=== PATIENT | female | born 1930 | race Hispanic/Latino ===

== ENCOUNTER 2018-05-30 09:25 | Emergency (ER) | payer MEDICARE ==
[~2018-05-30] VITALS: Ht 149.9 cm; Wt 73.9 kg
[~2018-05-30 09:25] MED LIST: CLINDAMYCIN HC150 MG PO; FUROSEMIDE40 MG PO; GLIPIZIDE5 MG PO; LOSARTAN POTAS100 MG PO; OMEPRAZOLE40 MG; TYLENOL WITH C1 EACH PO; VITAMIN D400 UNI1
[2018-05-30] MEDS ORDERED: ASPIRIN 81 MG CHEW TAB PO ONE (10:00)
[2018-05-30 10:19] LABS: BASOPHILS % 0.4 % (0.0-1.0); EOSINOPHILS # (AUTO) 0.1 (0.0-0.4); HEMATOCRIT 31.3 % (34.2-44.1); LYMPHOCYTES # (AUTO) 1.4 (1.0-3.2); LYMPHOCYTES % 19.2 % (18.0-39.1); MEAN CORPUSCULAR HEMOGLOBIN 23.4 pg (28-32); MEAN CORPUSCULAR HGB CONC 31.6 g/dL (31-35); MONOCYTES # (AUTO) 0.8 (0.2-0.8); MONOCYTES % 11.5 % (4.4-11.3); NEUTROPHILS # (AUTO) 4.7 (2.1-6.9); NEUTROPHILS % 66.2 % (38.7-80.0); PLATELET COUNT 230 x10e3/uL (140-360); RED BLOOD COUNT 4.23 x10e6/uL (3.6-5.1); RED CELL DISTRIBUTION WIDTH 16.8 % (11.7-14.4)
[2018-05-30 10:21] LABS: HEMOGLOBIN 9.9 g/dL (12.0-16.0)
[2018-05-30] MEDS ORDERED: HYDROCODONE/APAP 5MG-325MG TAB PO ONE (10:30)
[2018-05-30 10:35] LABS: ALANINE AMINOTRANSFERASE 7 IU/L (0-55); ALBUMIN 2.9 g/dL (3.5-5.0); ALBUMIN/GLOBULIN RATIO 0.8 (0.8-2.0); ALKALINE PHOSPHATASE 119 IU/L (40-150); ANION GAP 14.1 mmol/L (8-16); BLOOD UREA NITROGEN 20 mg/dL (7-26); BUN/CREATININE RATIO 29 (6-25); CALCIUM 8.9 mg/dL (8.4-10.2); CARBON DIOXIDE 26 mmol/L (22-29); CHLORIDE 99 mmol/L (98-107); CREATINE KINASE 26 IU/L (29-168); CREATININE, SERUM 0.68 mg/dL (0.57-1.11); EST GLOMERULAR FILTRATION RATE > 60 ML/MIN (60-); GLUCOSE 175 mg/dL (74-118); POTASSIUM 4.1 mmol/L (3.5-5.1); SODIUM 135 mmol/L (136-145)
[2018-05-30] MEDS ORDERED: IRBESARTAN150 MG PO (10:47)
--- NOTE | 2018-05-30 10:48 | Diagnostic Imaging Report ---
Exam: Left shoulder 2 views History: Pain x1 week Comparison: None. Findings: No acute, displaced fracture or dislocation. Humeral head projects appropriately adjacent to the glenoid. Moderate glenohumeral and acromioclavicular joint space narrowing with marginal osteophytosis. Irregularity of the greater humeral tuberosity likely reflects rotator cuff tendinosis. Left subclavian approach implantable cardiac device partially visualized. Left upper lung is grossly clear. Soft tissues unremarkable. Impression: No acute osseous abnormalities. Moderate acromioclavicular and glenohumeral degenerative joint disease. Signed by: Dr. Babar Oviedo M.D. on 05/30/2018 10:45 AM
[2018-05-30] MEDS ORDERED: LIDOCAINE 5% PATCH TP SCH (11:00)
[2018-05-30] MEDS ORDERED: LIDOPATCH1 EACH TOP (12:57)
--- NOTE | 2018-05-30 14:02 | Diagnostic Imaging Report ---
History: Left-sided shoulder pain Comparison studies: None Technique: Axial images were obtained through the cervical region. Coronal and sagittal images reconstructed from the axial data. Intravenous contrast: None Dose modulation, iterative reconstruction, and/or weight based adjustment of the mA/kV was utilized to reduce the radiation dose to as low as reasonably achievable. Findings: Atlantoaxial articulation: Degenerative changes without acute abnormality Alignment: Normal lordosis No scoliosis. Cervicomedullary junction: No abnormalities. Patent foramen magnum. Soft tissues: No gross abnormalities. Vertebrae: No fractures, neoplasm or infection. Degenerative changes: C2-C3: Patent spinal canal and foramina . C3-4: Disc degeneration with decreased intervertebral space. Asymmetric left disc osteophyte complex, bilateral uncinate process and facet hypertrophy results in no significant canal stenosis, mild right and moderate left foraminal narrowing . C4-5: Disc degeneration with decreased intervertebral space. Diffuse disc osteophyte complex, bilateral uncinate process hypertrophy results in mild canal stenosis, moderate right and mild left foraminal narrowing. C5-6: Disc degeneration with decreased intervertebral space and mild endplate sclerotic changes. Subcentimeter pneumatocyst C5 superior endplate. Diffuse disc osteophyte complex, Bilateral uncinate processes and facet hypertrophy results in mild canal stenosis and moderate bilateral foraminal narrowing . C6-7: Patent spinal canal and foramina . C7-T1: Patent spinal canal and foramina . IMPRESSION: 1. No acute cervical abnormality. 2. Moderate multilevel degenerative foraminal narrowing at C3-4 on the left, C4-5 on the right and C5-6 bilaterally. Mild multilevel foraminal narrowing at the upper and mid cervical spine. 3. Mild degenerative canal stenosis at 4-5 and C5-6. Other degenerative changes as described above Signed by: DR Konrad Solis M.D. on 05/30/2018 1:59 PM
== END 2018-05-30 13:15 | disposition home or self-care (01) ==
LOC: ER 09:25
DX: M25.512 Pain in left shoulder (principal); M54.12 Radiculopathy, cervical region
CPT/HCPCS: 36415; 72125; 80053; 82550; 82553; 84484; 85025; 93005; 99284

== ENCOUNTER 2018-11-06 07:24 | Inpatient (IN) | payer MEDICARE ==
[~2018-11-06] VITALS: Ht 152.4 cm; Wt 70.3 kg
[~2018-11-06 07:24] MED LIST changes: +IRBESARTAN150 MG PO; +LIDOPATCH1 EACH TOP
--- OUTSIDE RECORDS SUMMARY | 2018-11-06 07:27 | XMS REPORT ---
Author Author [facility] Address Unknown Phone Unavailable Care Team Providers Care Behavioral Health Clinician Name Role Phone Mary ROACH Unavailable Unavailable Payers Payer Name Policy Type Policy Number Effective Date Expiration Date Problems This patient has no known problems. Allergies, Adverse Reactions, Alerts Allergy Name Allergy Type Status Severity Reaction(s) Onset Date Inactive Date Treating Clinician Comments mupirocin DA Active UT 2018-10-26 00:00:00 ciprofloxacin HCl DA Active U 2010-11-09 00:00:00 Sulfa (Sulfonamide Antibiotics) DA Active U 2010-11-09 00:00:00 lovastatin DA Active U 2010-11-09 00:00:00 prednisone DA Active U 2010-11-09 00:00:00 cephalexin DA Active U 2010-11-09 00:00:00 doxycycline DA Active U 2010-11-09 00:00:00 metoclopramide DA Active U 2010-11-09 00:00:00 vancomycin DA Active U 2010-11-09 00:00:00 levofloxacin DA Active U 2010-11-09 00:00:00 Medications This patient has no known medications. Results Test Description Test Time Test Comments Text Results Atomic Results Result Comments [facility] 2018-11-01 17:46:00 RUN DATE: 11/01/18 [facility] PAGE 1 RUN TIME: 1747 Specimen Inquiry RUN USER: INTERFACE PATIENT: EDMUND SINGH LOC: [place] U #: [id number] AGE/SX: 87/F ROOM: [facility] RE10/22/18REG DR: Boo Kelley MD : 32 BED: A DIS: 10/26/18 STATUS: DIS IN TLOC: SPEC #: [id number] RECD: 10/28/18 STATUS: BROOK[place]N MALDONADO #: [id number] MURPHY: 10/28/18- SUBM DR: Jennifer Cox MD ENTERED: 10/28/18 SP TYPE: STOMACH OTHR DR: Mariano Woodruff MD Chitra,Justin Mckenzie MDORDERED: GROSS COPIES TO: Mariano Woodruff MD [address] [place], [place] [id number] H aqJustin MD [address] [place] [address] Jennifer Cox MD [address] [place] [address] PROCEDURES: GROSS (11/01/18-1256) TISSUES: 1. DUODENUM, NOS - BX 2. ANTRAL BIOPSY - H-PYLORI 3. FUNDUS - POLYP CLINICAL HISTORY COLLECTION DATE: 10/25/18 ANEMIA, MELENA COMMENT An atypical lymphoid proliferation is present in the first specimen highly suspicious for lymphoma. For this reason, the tissue from this specimen was sent for consultation to Dr. Price. 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 FISH for BCL2, BCL6, and MYC for evaluation of double or triple hit lymphoma will follow. Case reviewed intradepartmentally by Dr. Magaly Cortés, who agrees with the above diagnosis and interpretation. 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 It consists of two dias biopsy fragments measuring 0.25 cm each, submitted as (1). The second specimen is received in formalin, labeled with the patient's name, identified as "antrum and body bx". It consists of dias biopsy material measuring 0.4 cm in aggregate, submitted as (2). An H E and a Giemsa stain will be prepared. The third specimen is received in formalin, labeled with the patient's name, identified as "fundic polyp", and consists of dias biopsy fragment measuring 0.3 cm, submitted as (3). GROSS PERFORMED AT [facility] [address] [place] [id number] (p)[phone] CONTINUED ON NEXT PAGE RUN DATE: 11/01/18 [facility] PAGE 3 RUN TIME: 1747 Specimen Inquiry RUN USER: INTERFACE SPEC #: [id number] PATIENT: EDMUND SINGH TACO #[id number] (Continued) MICROSCOPIC All of the stains, including any controls performed, stain appropriately. MICROSCOPIC PERFORMED AT [facility] [address] [facility] [place] [address] (p)[phone] PERFORMING SITE Diagnosis performed at: [facility] [address] [facility], [place] [address] Signed SIGNATURE ON FILE Yovanny Sánchez MD 11/01/18 1746 END OF REPORT TROPONIN-I 2018-11-01 10:42:00 TROPONIN-I (test code=TROPI) 0.08 ng/mL 0.00-0.056 Results called to [id number] by SANDY 11/01/18 1041Critical results verified and read back by Nurse? Tracy [id number] 09:48:00* Test Item Value Reference Range Comments GLUBED (test code=GLUBED) 158 mg/dL 74-106 Performed by certified pipe wrapping machine operator at [facility] [id number] 08:24:00* Test Item Value Reference Range Comments GLUBED (test code=GLUBED) 144 mg/dL 74-106 Performed by certified pipe wrapping machine operator at [facility] URINALYSIS [id number] 08:16:00* Test Item Value Reference Range Comments UA COLOR (test code=COLU) YELLOW YELLOW UA APPEARANCE (test code=APPU) SLIGHT CLOUDY CLEAR UA GLUCOSE DIPSTICK (test code=DGLUU) norm mg/dL NEGATIVE UA BILIRUBIN DIPSTICK (test code=BILU) 1 mg/dL NEGATIVE UA KETONE DIPSTICK (test code=KETU) neg mg/dL NEGATIVE UA SPECIFIC GRAVITY (test code=SGU) 1.015 1.001-1.035 UA BLOOD DIPSTICK (test code=JACKY) neg Jean Marie/uL NEGATIVE UA PH DIPSTICK (test code=SABRINA) 7.0 5.0-8.0 UA PROTEIN DIPSTICK (test code=PROU) 30 (1+) mg/dL Neg-15 UA UROBILINIOGEN DIPSTICK (test code=URO) 12 mg/dL (3+) mg/dL 0.0-0.2 UA NITRITE DIPSTICK (test code=DREW) NEGATIVE NEGATIVE UA LEUKOCYTE ESTERASE DIPSTICK (test code=LEUU) neg uL NEGATIVE UA WBC (test code=WBCU) 0-5 per HPF 0-5 UA RBC (test code=RBCU) 0-2 per HPF 0-5 UA EPITHELIAL CELLS (test code=EPIU) None seen per HPF Few UA BACTERIA (test code=BACU) NONE SEEN per HPF NONE UA AMORPHOUS SEDIMENT (test code=AMORU) MANY per LPF NONE Urine Source? Clean CatchURINALYSIS [id number] 08:08:00* Test Item Value Reference Range Comments UA COLOR (test code=COLU) YELLOW YELLOW UA APPEARANCE (test code=APPU) SLIGHT CLOUDY CLEAR UA GLUCOSE DIPSTICK (test code=DGLUU) norm mg/dL NEGATIVE UA BILIRUBIN DIPSTICK (test code=BILU) 1 mg/dL NEGATIVE UA KETONE DIPSTICK (test code=KETU) neg mg/dL NEGATIVE UA SPECIFIC GRAVITY (test code=SGU) 1.015 1.001-1.035 UA BLOOD DIPSTICK (test code=JACKY) neg Jean Marie/uL NEGATIVE UA PH DIPSTICK (test code=SABRINA) 7.0 5.0-8.0 UA PROTEIN DIPSTICK (test code=PROU) 30 (1+) mg/dL Neg-15 UA UROBILINIOGEN DIPSTICK (test code=URO) 12 mg/dL (3+) mg/dL 0.0-0.2 UA NITRITE DIPSTICK (test code=DREW) NEGATIVE NEGATIVE UA LEUKOCYTE ESTERASE DIPSTICK (test code=LEUU) neg uL NEGATIVE UA WBC (test code=WBCU) per HPF 0-5 UA RBC (test code=RBCU) per HPF 0-5 UA EPITHELIAL CELLS (test code=EPIU) per HPF Few UA BACTERIA (test code=BACU) per HPF NONE Urine Source? Clean CatchPROTHROMBIN [id number] 08:05:00* Test Item Value Reference Range Comments PROTHROMBIN TIME PATIENT (test code=PTP) 11.5 seconds 9.0-13.0 INTERNATIONAL NORMAL RATIO (test code=INR) 1.2 0.8-1.2 The therapeutic range for oral anticoagulant therapy formost indications is an international normalized ratio (INR)of between 2.0 and 3.0. The recommended therapeutic INRrange for various clinical situations is listed below: Clinical Situation INR range Pulmonary e mbolism treatment (2.0-3.0)Venous thrombosis treatmentVenous thrombosis prophylaxis (high risk surgery)Prevention of systemic embolism from: Acute myocardial infarction Valvular heart disease Atrial fibrillation Mechanical prosthetic heart valves (2.5-3.5) IS PATIENT ON ANTICOAGULANTS? NTHROMBOPLASTIN TIME [id number] 08:05:00* Test Item Value Reference Range Comments THROMBOPLASTIN TIME PARTIAL (test code=PTT) 26.7 seconds 25.5-34.3 Therapeutic Range for patients on Heparin Therapy is 2 to2.5 times their baseline PTT level. IS PATIENT ON ANTICOAGULANTS? [id number] 07:42:00* Test Item Value Reference Range Comments GLYCOSYLATED HEMOGLOBIN (HA1C) (test code=GLYHGB) 6.3 % 4.5-6.2 ESTIMATED AVERAGE GLUCOSE (test code=EAG) 134 MG/DL BASIC METABOLIC [id number] 07:31:00* Test Item Value Reference Range Comments SODIUM (test code=NA) 136 mmol/L 136-145 POTASSIUM (test code=K) 3.5 mmol/L 3.5-5.1 CHLORIDE (test code=CL) 98 mmol/L 101-109 CARBON DIOXIDE (test code=CO2) 32.4 mmol/L 21-32 ANION GAP (test code=GAP) 9 mmol/L 10-20 GLUCOSE (test code=GLU) 79 mg/dL 74-106 BLOOD UREA NITROGEN (test code=BUN) 11 mg/dL 3-21 GLOMERULAR FILTRATION RATE (test code=GFR) > 60 mL/min >=60 Estimated GFR by using Modified MDRD formula.Chronic kidney disease is defined as either kidney damageor GFR <60 mL/min/1.73 m2 for >3 months. CREATININE (test code=CREAT) 0.54 mg/dL 0.55-1.3 BUN/CREATININE RATIO (test code=BUN/CREA) 20.4 10-20 CALCIUM (test code=CA) 8.6 mg/dL 8.4-10.2 [id number] 07:31:00* Test Item Value Reference Range Comments TROPONIN-I (test code=TROPI) 0.09 ng/mL 0.00-0.056 Results called to [id number] by BRADLEY 11/01/18 0731Critical results verified and read back by Nurse? Y B-TYPE NATRIURETIC [id number] 07:27:00* Test Item Value Reference Range Comments B-TYPE NATRIURETIC PEPTIDE (test code=BNP) 219 pg/mL 0-100 BASIC METABOLIC [id number] 07:22:00* Test Item Value Reference Range Comments SODIUM (test code=NA) 136 mmol/L 136-145 POTASSIUM (test code=K) 3.5 mmol/L 3.5-5.1 CHLORIDE (test code=CL) 98 mmol/L 101-109 CARBON DIOXIDE (test code=CO2) 32.4 mmol/L 21-32 ANION GAP (test code=GAP) 9 mmol/L 10-20 GLUCOSE (test code=GLU) 79 mg/dL 74-106 BLOOD UREA NITROGEN (test code=BUN) 11 mg/dL 3-21 GLOMERULAR FILTRATION RATE (test code=GFR) > 60 mL/min >=60 Estimated GFR by using Modified MDRD formula.Chronic kidney disease is defined as either kidney damageor GFR <60 mL/min/1.73 m2 for >3 months. CREATININE (test code=CREAT) 0.54 mg/dL 0.55-1.3 BUN/CREATININE RATIO (test code=BUN/CREA) 20.4 10-20 CALCIUM (test code=CA) 8.6 mg/dL 8.4-10.2 [id number] 07:22:00* Test Item Value Reference Range Comments TROPONIN-I (test code=TROPI) ng/mL 0-0.045 CBC W/O [id number] 07:10:00* Test Item Value Reference Range Comments WHITE BLOOD CELL (test code=WBC) 9.8 K/mm3 4.5-12.5 RED BLOOD CELL (test code=RBC) 4.09 mill/mm3 3.7-5.2 HEMOGLOBIN (test code=HGB) 10.1 gram/dL 11.5-15.5 HEMATOCRIT (test code=HCT) 33.3 % 36.0-46.0 MEAN CELL VOLUME (test code=MCV) 81.4 fL 80-98 MEAN CELL HGB (test code=MCH) 24.7 picogram 27.0-33.0 MEAN CELL HGB CONCETRATION (test code=MCHC) 30.3 gram/dL 33.0-36.0 RED CELL DISTRIBUTION WIDTH (test code=RDW) 22.3 % 11.6-16.2 RED CELL DISTRIBUTION WIDTH SD (test code=RDW-SD) 66.4 fL 37.0-51.0 PLATELET COUNT (test code=PLT) 233 K/mm3 150-450 MEAN PLATELET VOLUME (test code=MPV) 9.5 fL 6.7-11.0 [id number] 06:52:00* Test Item Value Reference Range Comments GLUBED (test code=GLUBED) 77 mg/dL 74-106 Performed by certified pipe wrapping machine operator at [facility] [id number] 11:44:00* Test Item Value Reference Range Comments GLUBED (test code=GLUBED) 277 mg/dL 74-106 Performed by certified pipe wrapping machine operator at [facility] [id number] 08:21:00* Test Item Value Reference Range Comments GLUBED (test code=GLUBED) 148 mg/dL 74-106 Performed by certified pipe wrapping machine operator at [facility] CBC W/O [id number] 05:40:00* Test Item Value Reference Range Comments WHITE BLOOD CELL (test code=WBC) 9.1 K/mm3 4.5-12.5 RED BLOOD CELL (test code=RBC) 3.83 mill/mm3 3.7-5.2 HEMOGLOBIN (test code=HGB) 9.4 gram/dL 11.5-15.5 HEMATOCRIT (test code=HCT) 29.9 % 36.0-46.0 MEAN CELL VOLUME (test code=MCV) 78.1 fL 80-98 MEAN CELL HGB (test code=MCH) 24.5 picogram 27.0-33.0 MEAN CELL HGB CONCETRATION (test code=MCHC) 31.4 gram/dL 33.0-36.0 RED CELL DISTRIBUTION WIDTH (test code=RDW) 22.0 % 11.6-16.2 PLATELET COUNT (test code=PLT) 207 K/mm3 150-450 MEAN PLATELET VOLUME (test code=MPV) 10.0 fL 6.7-11.0 [id number] 20:28:00* Test Item Value Reference Range Comments GLUBED (test code=GLUBED) 206 mg/dL 74-106 Performed by certified pipe wrapping machine operator at [facility] [id number] 17:23:00* Test Item Value Reference Range Comments GLUBED (test code=GLUBED) 138 mg/dL 74-106 Performed by certified pipe wrapping machine operator at [facility] [id number] 12:32:00* Test Item Value Reference Range Comments GLUBED (test code=GLUBED) 177 mg/dL 74-106 Performed by certified pipe wrapping machine operator at [facility] [id number] 12:31:00* Test Item Value Reference Range Comments GLUBED (test code=GLUBED) 122 mg/dL 74-106 Performed by certified pipe wrapping machine operator at [facility] CBC W/O [id number] 05:48:00* Test Item Value Reference Range Comments WHITE BLOOD CELL (test code=WBC) 9.4 K/mm3 4.5-12.5 RED BLOOD CELL (test code=RBC) 3.99 mill/mm3 3.7-5.2 HEMOGLOBIN (test code=HGB) 9.7 gram/dL 11.5-15.5 HEMATOCRIT (test code=HCT) 30.8 % 36.0-46.0 MEAN CELL VOLUME (test code=MCV) 77.2 fL 80-98 MEAN CELL HGB (test code=MCH) 24.3 picogram 27.0-33.0 MEAN CELL HGB CONCETRATION (test code=MCHC) 31.5 gram/dL 33.0-36.0 RED CELL DISTRIBUTION WIDTH (test code=RDW) 21.6 % 11.6-16.2 PLATELET COUNT (test code=PLT) 216 K/mm3 150-450 MEAN PLATELET VOLUME (test code=MPV) 9.9 fL 6.7-11.0 CBC W/O [id number] 00:19:00* Test Item Value Reference Range Comments WHITE BLOOD CELL (test code=WBC) 9.4 K/mm3 4.5-12.5 RED BLOOD CELL (test code=RBC) 4.17 mill/mm3 3.7-5.2 HEMOGLOBIN (test code=HGB) 10.3 gram/dL 11.5-15.5 RESULT VERIFIED BY REPEAT ANALYSIS HEMATOCRIT (test code=HCT) 32.0 % 36.0-46.0 MEAN CELL VOLUME (test code=MCV) 76.7 fL 80-98 MEAN CELL HGB (test code=MCH) 24.7 picogram 27.0-33.0 MEAN CELL HGB CONCETRATION (test code=MCHC) 32.2 gram/dL 33.0-36.0 RED CELL DISTRIBUTION WIDTH (test code=RDW) 21.4 % 11.6-16.2 PLATELET COUNT (test code=PLT) 236 K/mm3 150-450 MEAN PLATELET VOLUME (test code=MPV) 9.8 fL 6.7-11.0 [id number] 20:48:00* Test Item Value Reference Range Comments GLUBED (test code=GLUBED) 191 mg/dL 74-106 Performed by certified pipe wrapping machine operator at [facility] [id number] 18:27:00* Test Item Value Reference Range Comments GLUBED (test code=GLUBED) 205 mg/dL 74-106 Performed by certified pipe wrapping machine operator at [facility] [id number] 12:40:00* Test Item Value Reference Range Comments GLUBED (test code=GLUBED) 172 mg/dL 74-106 Performed by certified pipe wrapping machine operator at [facility] [id number] 08:50:00* Test Item Value Reference Range Comments GLUBED (test code=GLUBED) 64 mg/dL 74-106 Performed by certified pipe wrapping machine operator at [facility] - CT ABD PELVIS W/O [id number] 20:31:00 Name: EDMUND SINGH TACO [facility] : 1930 Age/S: 87 / F [address] [facility] Unit #: [id number] Loc: [place] [address] Phys: Boo Kelley MD Acct: [id number] Dis Date: Status: ADM IN PHONE #: [phone] Exam Date: 10/23/2018 1510 FAX #: [phone] Reason: LYMPHOMA EXAMS: CPT CODE: [id number] CT ABD PELVIS W/O CONT 43456 REASON FOR EXAM: LYMPHOMA EXAM ORDER DATE: 10/23/2018 11:35 PM Ordering M.D.: Boo Roberts MD PROCEDURE: - CT CHEST W/O CONTRAST, - CT ABD PELVIS W/O CONT noncontrast axial CT images were acquired through the chest, abdomen, and pelvis. Sagittal and coronal reformatted images were generated. Automated exposure control was utilized for this reduction. Phases of contrast: None COMPARISON: CT of the abdomen and pelvis August 22, 2012. CT of the chest February 02, 2012 is also available for review. FINDINGS: The absence of IV contrast limits sensitivity of this exam for the detection of soft tissue pathology Visualized neck: Grossly normal. Airways, Lungs and Pleura: Scattered areas of subsegmental atelectasis are present. Heart, great vessels, pulmonary vessels, mediastinum: A left subclavian vein approach dual lead pacemaker is present with leads terminating in the right atrium and right ventricle. 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 Atherosclerotic disease is also present in the aortic arch. Thoracic Lymph nodes: No axillary, internal mammary, or mediastinal adenopathy. Hilar lymph nodes are suboptimally evaluated due to the absence of IV contrast. Hepatobiliary system: Grossly normal Pancreas: Grossly normal Spleen: Grossly normal Adrenal glands: Grossly normal PAGE 1 Signed Report (CONT INUED) Name: EDMUND SINGH [facility] : 1930 Age/S: 87 / F [address] [facility] Unit #: [id number] Loc: [place] [address] Phys: Boo Rojas MD Acct: [id number] Dis Date: Status: ADM IN [place]ARTI NE #: [phone] Exam Date: 10/23/2018 1510 FAX #: Reason: LYMPHOMA EXAM S: CPT CODE: [id number] CT ABD PELVIS W/O CONT 10266 <Continued> Genitourinary system: Uterus is surgically absent. Kidneys and ureters and urinary bladder are unremarkable. Gastrointestinal tract and appendix: Grossly unremarkable other than a small hiatal hernia Abdominal vascular structures: There is atherosclerotic disease sc attered throughout the abdominal aorta and iliac arteries. Periton eum and retroperitoneum: Small amount of pelvic ascites is present. There are numerous enlarged mesenteric lymph nodes in the left upper abdomen, at the hepatic hilum, and throughout the retroperitoneum. There is also stra nding of the mesentery in the left upper abdomen. Musculoske letal structures, chest wall, and abdominal wall: There is a compression f racture of the L1 vertebral body. There are also degenerative changes thro ughout the spine. IMPRESSION: Mesenteric and retroperito prasad adenopathy as described above. Given the patient's history of lymph rogelio, this is worrisome for recurrence. Compression fracture of the L1 ve rtebral body. This is worrisome for a pathologic fracture given the jason opathy described above. Electronically Signed by Kai Conn MD on 0 10/23/2018 at 2030 Reported and signed by: Kai Conn MD CC: Boo Kelley Techno logist:Vianey Hernandez RT(R); Gila CTDI: DLP: Trnscb Date/Time : 10/23/2018 (2030) [email or web address] Orig Print D/T: S: 10/24/19 19 (2033) PAGE 2 Signed Report - CT CHEST W/O [id number] 20:31:00 Name: EDMUND SINGH [facility] : 1930 Age/S: 87 / F [address] Unit #: [id number] Loc: [place] [address] Phys: Boo Kelley MD Acct: [id number] Dis Date: Status: ADM IN PHONE #: [phone] Exam Date: 10/23/2018 1510 FAX #: [phone] Reason: LYMPHOMA EXAMS: CPT CODE: [id number] CT CHEST W/O CONTRAST 69500 REASON FOR EXAM: LYMPHOMA EXAM ORDER DATE: 10/23/2018 11:35 PM Ordering M.D.: Boo Roberts MD PROCEDURE: - CT CHEST W/O CONTRAST, - CT ABD PELVIS W/O CONT noncontrast axial CT images were acquired through the chest, abdomen, and pelvis. Sagittal and coronal reformatted images were generated. Automated exposure control was utilized for this reduction. Phases of contrast: None COMPARISON: CT of the abdomen and pelvis August 22, 2012. CT of the chest February 02, 2012 is also available for review. FINDINGS: The absence of IV contrast limits sensitivity of this exam for the detection of soft tissue pathology Visualized neck: Grossly normal. Airways, Lungs and Pleura: Scattered areas of subsegmental atelectasis are present. Heart, great vessels, pulmonary vessels, mediastinum: A left subclavian vein approach dual lead pacemaker is present with leads terminating in the right atrium and right ventricle. 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 Atherosclerotic disease is also present in the aortic arch. Thoracic Lymph nodes: No axillary, internal mammary, or mediastinal adenopathy. Hilar lymph nodes are suboptimally evaluated due to the absence of IV contrast. Hepatobiliary system: Grossly normal Pancreas: Grossly normal Spleen: Grossly normal Adrenal glands: Grossly normal PAGE 1 Signed Report (CONT INUED) Name: EDMUND SINGH [facility] : 1930 Age/S: 87 / F [address] Unit #: [id number] Loc: [place] [address] Phys: Boo Rojas MD Acct: [id number] Dis Date: Status: ADM IN [place]ART[place] NE #: [phone] Exam Date: 10/23/2018 1510 FAX #: Reason: LYMPHOMA EXAM S: CPT CODE: [id number] CT [address] W/O CONTRAST 67998 <Continued> Genitourinary system: Uterus is surgically absent. Kidneys and ureters and urinary bladder are unremarkable. Gastrointestinal tract and appendix: Grossly unremarkable other than a small hiatal hernia Abdominal vascular structures: There is atherosclerotic disease sc attered throughout the abdominal aorta and iliac arteries. Periton eum and retroperitoneum: Small amount of pelvic ascites is present. There are numerous enlarged mesenteric lymph nodes in the left upper abdomen, at the hepatic hilum, and throughout the retroperitoneum. There is also stra nding of the mesentery in the left upper abdomen. Musculoske letal structures, chest wall, and abdominal wall: There is a compression f racture of the L1 vertebral body. There are also degenerative changes thro ughout the spine. IMPRESSION: Mesenteric and retroperito prasad adenopathy as described above. Given the patient's history of lymph rogelio, this is worrisome for recurrence. Compression fracture of the L1 ve rtebral body. This is worrisome for a pathologic fracture given the jason opathy described above. Electronically Signed by Kai Conn MD on 0 10/23/2018 at 2030 Reported and signed by: Kai Conn MD CC: Boo Kelley Techno logist:Vianey Hernandez RT(R); Gila CTDI: DLP: Trnscb Date/Time : 10/23/2018 (2030) [email or web address] Orig Print D/T: S: 10/24/19 19 (2033) PAGE 2 Signed Report [id number] 20:23:00* Test Item Value Reference Range Comments GLUBED (test code=GLUBED) 158 mg/dL 74-106 Performed by certified pipe wrapping machine operator at [facility] [id number] 16:33:00* Test Item Value Reference Range Comments GLUBED (test code=GLUBED) 124 mg/dL 74-106 Performed by certified pipe wrapping machine operator at [facility] [id number] 14:08:00* Test Item Value Reference Range Comments GLUBED (test code=GLUBED) 87 mg/dL 74-106 Performed by certified pipe wrapping machine operator at [facility] [id number] 08:13:00* Test Item Value Reference Range Comments GLUBED (test code=GLUBED) 58 mg/dL 74-106 Performed by certified pipe wrapping machine operator at [facility] CBC W/AUTO [id number] 05:47:00* Test Item Value Reference Range Comments WHITE BLOOD CELL (test code=WBC) 7.4 K/mm3 4.5-12.5 RED BLOOD CELL (test code=RBC) 2.86 mill/mm3 3.7-5.2 HEMOGLOBIN (test code=HGB) 6.5 gram/dL 11.5-15.5 HEMATOCRIT (test code=HCT) 21.8 % 36.0-46.0 Results called to [id number] by [email or web address] 10/23/18 0511Critical results verified and read back by Nurse? Y MEAN CELL VOLUME (test code=MCV) 76.2 fL 80-98 MEAN CELL HGB (test code=MCH) 22.7 picogram 27.0-33.0 MEAN CELL HGB CONCETRATION (test code=MCHC) 29.8 gram/dL 33.0-36.0 RED CELL DISTRIBUTION WIDTH (test code=RDW) 21.5 % 11.6-16.2 RED CELL DISTRIBUTION WIDTH SD (test code=RDW-SD) 57.8 fL 37.0-51.0 PLATELET COUNT (test code=PLT) 232 K/mm3 150-450 MEAN PLATELET VOLUME (test code=MPV) 9.4 fL 6.7-11.0 NEUTROPHIL % (test code=NT%) 55.7 % 39.0-69.0 IMMATURE GRANULOCYTE % (test code=IG%) 0.9 % 0.0-5.0 LYMPHOCYTE % (test code=LY%) 12.8 % 25.0-55.0 MONOCYTE % (test code=MO%) 20.6 % 0.0-10.0 EOSINOPHIL % (test code=EO%) 9.7 % 0.0-5.0 BASOPHIL % (test code=BA%) 0.3 % 0.0-1.0 NUCLEATED RBC % (test code=NRBC%) 0.0 % 0-0 NEUTROPHIL # (test code=NT#) 4.12 K/mm3 1.8-7.7 IMMATURE GRANULOCYTE # (test code=IG#) 0.07 x10 3/uL 0-0.03 LYMPHOCYTE # (test code=LY#) 0.95 K/mm3 1.0-5.0 MONOCYTE # (test code=MO#) 1.53 K/mm3 0-0.8 EOSINOPHIL # (test code=EO#) 0.72 K/mm3 0.0-0.5 BASOPHIL # (test code=BA#) 0.02 K/mm3 0.0-0.2 NUCLEATED RBC # (test code=NRBC#) 0.00 K/mm3 0.0-0.1 MANUAL DIFF REQUIRED (test code=MDIFF) NO, ONLY SCAN NEEDED DIFFERENTIAL [id number] 05:47:00* Test Item Value Reference Range Comments STAIN ACCEPTABILITY (test code=STN ACCEPTABLE) STAIN ACCEPTABLE POLYCHROMASIA (test code=POLC) 1+ HYPOCHROMIA (test code=HYPO) 2+ ANISOCYTOSIS (test code=ANISO) 1+ MICROCYTOSIS (test code=MICR) 1+ PLATELET ESTIMATE (test code=PLTEST) ADEQUATE PLATELET MORPHOLOGY (test code=PLTMORPH) NORMAL BASIC METABOLIC [id number] 05:44:00* Test Item Value Reference Range Comments SODIUM (test code=NA) 138 mmol/L 136-145 POTASSIUM (test code=K) 3.0 mmol/L 3.5-5.1 CHLORIDE (test code=CL) 101.0 mmol/L 98-107 CARBON DIOXIDE (test code=CO2) 30.0 mmol/L 21-32 ANION GAP (test code=GAP) 10.0 10-20 GLUCOSE (test code=GLU) 82 mg/dL 74-106 BLOOD UREA NITROGEN (test code=BUN) 11 mg/dL 7-18 GLOMERULAR FILTRATION RATE (test code=GFR) > 60 mL/min >=60 Estimated GFR by using Modified MDRD formula.Chronic kidney disease is defined as either kidney damageor GFR <60 mL/min/1.73 m2 for >3 months. CREATININE (test code=CREAT) 0.40 mg/dL 0.55-1.02 Note change in reference range due to change in reagent. BUN/CREATININE RATIO (test code=BUN/CREA) 26.4 10-20 CALCIUM (test code=CA) 8.8 mg/dL 8.5-10.1 BASIC METABOLIC [id number] 05:34:00* Test Item Value Reference Range Comments SODIUM (test code=NA) 138 mmol/L 136-145 POTASSIUM (test code=K) 3.0 mmol/L 3.5-5.1 CHLORIDE (test code=CL) 101.0 mmol/L 98-107 CARBON DIOXIDE (test code=CO2) mmol/L 21-32 ANION GAP (test code=GAP) 10-20 GLUCOSE (test code=GLU) mg/dL 74-106 BLOOD UREA NITROGEN (test code=BUN) mg/dL 7-18 GLOMERULAR FILTRATION RATE (test code=GFR) mL/min >=60 CREATININE (test code=CREAT) mg/dL 0.55-1.02 BUN/CREATININE RATIO (test code=BUN/CREA) 10-20 CALCIUM (test code=CA) mg/dL 8.5-10.1 CBC W/AUTO [id number] 05:12:00* Test Item Value Reference Range Comments WHITE BLOOD CELL (test code=WBC) 7.4 K/mm3 4.5-12.5 RED BLOOD CELL (test code=RBC) 2.86 mill/mm3 3.7-5.2 HEMOGLOBIN (test code=HGB) 6.5 gram/dL 11.5-15.5 HEMATOCRIT (test code=HCT) 21.8 % 36.0-46.0 Results called to [id number] by ANGELIC.ROSE1 10/23/18 0511Critical results verified and read back by Nurse? Y MEAN CELL VOLUME (test code=MCV) 76.2 fL 80-98 MEAN CELL HGB (test code=MCH) 22.7 picogram 27.0-33.0 MEAN CELL HGB CONCETRATION (test code=MCHC) 29.8 gram/dL 33.0-36.0 RED CELL DISTRIBUTION WIDTH (test code=RDW) 21.5 % 11.6-16.2 RED CELL DISTRIBUTION WIDTH SD (test code=RDW-SD) 57.8 fL 37.0-51.0 PLATELET COUNT (test code=PLT) 232 K/mm3 150-450 MEAN PLATELET VOLUME (test code=MPV) 9.4 fL 6.7-11.0 NEUTROPHIL % (test code=NT%) 55.7 % 39.0-69.0 IMMATURE GRANULOCYTE % (test code=IG%) 0.9 % 0.0-5.0 LYMPHOCYTE % (test code=LY%) 12.8 % 25.0-55.0 MONOCYTE % (test code=MO%) 20.6 % 0.0-10.0 EOSINOPHIL % (test code=EO%) 9.7 % 0.0-5.0 BASOPHIL % (test code=BA%) 0.3 % 0.0-1.0 NUCLEATED RBC % (test code=NRBC%) 0.0 % 0-0 NEUTROPHIL # (test code=NT#) 4.12 K/mm3 1.8-7.7 IMMATURE GRANULOCYTE # (test code=IG#) 0.07 x10 3/uL 0-0.03 LYMPHOCYTE # (test code=LY#) 0.95 K/mm3 1.0-5.0 MONOCYTE # (test code=MO#) 1.53 K/mm3 0-0.8 EOSINOPHIL # (test code=EO#) 0.72 K/mm3 0.0-0.5 BASOPHIL # (test code=BA#) 0.02 K/mm3 0.0-0.2 NUCLEATED RBC # (test code=NRBC#) 0.00 K/mm3 0.0-0.1 MANUAL DIFF REQUIRED (test code=MDIFF) NO, ONLY SCAN NEEDED DIFFERENTIAL [id number] 05:12:00* Test Item Value Reference Range Comments STAIN ACCEPTABILITY (test code=STN ACCEPTABLE) CABOT RINGS (test code=CAB) MORPHOLOGY COMMENT (test code=MOC) PLATELET ESTIMATE (test code=PLTEST) PLATELET MORPHOLOGY (test code=PLTMORPH) CBC W/AUTO [id number] 05:12:00* Test Item Value Reference Range Comments WHITE BLOOD CELL (test code=WBC) 7.4 K/mm3 4.5-12.5 RED BLOOD CELL (test code=RBC) 2.86 mill/mm3 3.7-5.2 HEMOGLOBIN (test code=HGB) 6.5 gram/dL 11.5-15.5 HEMATOCRIT (test code=HCT) 21.8 % 36.0-46.0 Results called to [id number] by [email or web address].JP1 10/23/18 0511Critical results verified and read back by Nurse? Y MEAN CELL VOLUME (test code=MCV) 76.2 fL 80-98 MEAN CELL HGB (test code=MCH) 22.7 picogram 27.0-33.0 MEAN CELL HGB CONCETRATION (test code=MCHC) 29.8 gram/dL 33.0-36.0 RED CELL DISTRIBUTION WIDTH (test code=RDW) 21.5 % 11.6-16.2 RED CELL DISTRIBUTION WIDTH SD (test code=RDW-SD) 57.8 fL 37.0-51.0 PLATELET COUNT (test code=PLT) 232 K/mm3 150-450 MEAN PLATELET VOLUME (test code=MPV) 9.4 fL 6.7-11.0 NEUTROPHIL % (test code=NT%) 55.7 % 39.0-69.0 IMMATURE GRANULOCYTE % (test code=IG%) 0.9 % 0.0-5.0 LYMPHOCYTE % (test code=LY%) 12.8 % 25.0-55.0 MONOCYTE % (test code=MO%) 20.6 % 0.0-10.0 EOSINOPHIL % (test code=EO%) 9.7 % 0.0-5.0 BASOPHIL % (test code=BA%) 0.3 % 0.0-1.0 NUCLEATED RBC % (test code=NRBC%) 0.0 % 0-0 NEUTROPHIL # (test code=NT#) 4.12 K/mm3 1.8-7.7 IMMATURE GRANULOCYTE # (test code=IG#) 0.07 x10 3/uL 0-0.03 LYMPHOCYTE # (test code=LY#) 0.95 K/mm3 1.0-5.0 MONOCYTE # (test code=MO#) 1.53 K/mm3 0-0.8 EOSINOPHIL # (test code=EO#) 0.72 K/mm3 0.0-0.5 BASOPHIL # (test code=BA#) 0.02 K/mm3 0.0-0.2 NUCLEATED RBC # (test code=NRBC#) 0.00 K/mm3 0.0-0.1 MANUAL DIFF REQUIRED (test code=MDIFF) NO, ONLY SCAN NEEDED DIFFERENTIAL [id number] 05:12:00* Test Item Value Reference Range Comments STAIN ACCEPTABILITY (test code=STN ACCEPTABLE) MORPHOLOGY COMMENT (test code=MOC) PLATELET ESTIMATE (test code=PLTEST) PLATELET MORPHOLOGY (test code=PLTMORPH) CBC W/AUTO [id number] 05:11:00* Test Item Value Reference Range Comments WHITE BLOOD CELL (test code=WBC) 7.4 K/mm3 4.5-12.5 RED BLOOD CELL (test code=RBC) 2.86 mill/mm3 3.7-5.2 HEMOGLOBIN (test code=HGB) 6.5 gram/dL 11.5-15.5 HEMATOCRIT (test code=HCT) 21.8 % 36.0-46.0 Results called to [id number] by MALLORY 10/23/18 0511Critical results verified and read back by Nurse? Y MEAN CELL VOLUME (test code=MCV) 76.2 fL 80-98 MEAN CELL HGB (test code=MCH) 22.7 picogram 27.0-33.0 MEAN CELL HGB CONCETRATION (test code=MCHC) 29.8 gram/dL 33.0-36.0 RED CELL DISTRIBUTION WIDTH (test code=RDW) 21.5 % 11.6-16.2 RED CELL DISTRIBUTION WIDTH SD (test code=RDW-SD) 57.8 fL 37.0-51.0 PLATELET COUNT (test code=PLT) 232 K/mm3 150-450 MEAN PLATELET VOLUME (test code=MPV) 9.4 fL 6.7-11.0 NEUTROPHIL % (test code=NT%) 55.7 % 39.0-69.0 IMMATURE GRANULOCYTE % (test code=IG%) 0.9 % 0.0-5.0 LYMPHOCYTE % (test code=LY%) 12.8 % 25.0-55.0 MONOCYTE % (test code=MO%) 20.6 % 0.0-10.0 EOSINOPHIL % (test code=EO%) 9.7 % 0.0-5.0 BASOPHIL % (test code=BA%) 0.3 % 0.0-1.0 NUCLEATED RBC % (test code=NRBC%) 0.0 % 0-0 NEUTROPHIL # (test code=NT#) 4.12 K/mm3 1.8-7.7 IMMATURE GRANULOCYTE # (test code=IG#) 0.07 x10 3/uL 0-0.03 LYMPHOCYTE # (test code=LY#) 0.95 K/mm3 1.0-5.0 MONOCYTE # (test code=MO#) 1.53 K/mm3 0-0.8 EOSINOPHIL # (test code=EO#) 0.72 K/mm3 0.0-0.5 BASOPHIL # (test code=BA#) 0.02 K/mm3 0.0-0.2 NUCLEATED RBC # (test code=NRBC#) 0.00 K/mm3 0.0-0.1 MANUAL DIFF REQUIRED (test code=MDIFF) NO, ONLY SCAN NEEDED DIFFERENTIAL [id number] 05:11:00* Test Item Value Reference Range Comments STAIN ACCEPTABILITY (test code=STN ACCEPTABLE) CABOT RINGS (test code=CAB) MORPHOLOGY COMMENT (test code=MOC) PLATELET ESTIMATE (test code=PLTEST) PLATELET MORPHOLOGY (test code=PLTMORPH) CBC W/AUTO [id number] 05:11:00* Test Item Value Reference Range Comments WHITE BLOOD CELL (test code=WBC) 7.4 K/mm3 4.5-12.5 RED BLOOD CELL (test code=RBC) 2.86 mill/mm3 3.7-5.2 HEMOGLOBIN (test code=HGB) 6.5 gram/dL 11.5-15.5 HEMATOCRIT (test code=HCT) 21.8 % 36.0-46.0 Results called to [id number] by [email or web address] 10/23/18 0511Critical results verified and read back by Nurse? Y MEAN CELL VOLUME (test code=MCV) 76.2 fL 80-98 MEAN CELL HGB (test code=MCH) 22.7 picogram 27.0-33.0 MEAN CELL HGB CONCETRATION (test code=MCHC) 29.8 gram/dL 33.0-36.0 RED CELL DISTRIBUTION WIDTH (test code=RDW) 21.5 % 11.6-16.2 RED CELL DISTRIBUTION WIDTH SD (test code=RDW-SD) 57.8 fL 37.0-51.0 PLATELET COUNT (test code=PLT) 232 K/mm3 150-450 MEAN PLATELET VOLUME (test code=MPV) 9.4 fL 6.7-11.0 NEUTROPHIL % (test code=NT%) 55.7 % 39.0-69.0 IMMATURE GRANULOCYTE % (test code=IG%) 0.9 % 0.0-5.0 LYMPHOCYTE % (test code=LY%) 12.8 % 25.0-55.0 MONOCYTE % (test code=MO%) 20.6 % 0.0-10.0 EOSINOPHIL % (test code=EO%) 9.7 % 0.0-5.0 BASOPHIL % (test code=BA%) 0.3 % 0.0-1.0 NUCLEATED RBC % (test code=NRBC%) 0.0 % 0-0 NEUTROPHIL # (test code=NT#) 4.12 K/mm3 1.8-7.7 IMMATURE GRANULOCYTE # (test code=IG#) 0.07 x10 3/uL 0-0.03 LYMPHOCYTE # (test code=LY#) 0.95 K/mm3 1.0-5.0 MONOCYTE # (test code=MO#) 1.53 K/mm3 0-0.8 EOSINOPHIL # (test code=EO#) 0.72 K/mm3 0.0-0.5 BASOPHIL # (test code=BA#) 0.02 K/mm3 0.0-0.2 NUCLEATED RBC # (test code=NRBC#) 0.00 K/mm3 0.0-0.1 MANUAL DIFF REQUIRED (test code=MDIFF) NO, ONLY SCAN NEEDED DIFFERENTIAL [id number] 05:11:00* Test Item Value Reference Range Comments STAIN ACCEPTABILITY (test code=STN ACCEPTABLE) CABOT RINGS (test code=CAB) MORPHOLOGY COMMENT (test code=MOC) PLATELET ESTIMATE (test code=PLTEST) PLATELET MORPHOLOGY (test code=PLTMORPH) COMPREHENSIVE METABOLIC [id number] 00:02:00* Test Item Value Reference Range Comments SODIUM (test code=NA) 137 mmol/L 136-145 POTASSIUM (test code=K) 2.9 mmol/L 3.5-5.1 Results called to [id number] by AMPARO 10/22/18 2331Critical results verified and read back by Nurse? Y CHLORIDE (test code=CL) 100.0 mmol/L 98-107 CARBON DIOXIDE (test code=CO2) 29.0 mmol/L 21-32 ANION GAP (test code=GAP) 10.9 10-20 GLUCOSE (test code=GLU) 164 mg/dL 74-106 BLOOD UREA NITROGEN (test code=BUN) 11 mg/dL 7-18 GLOMERULAR FILTRATION RATE (test code=GFR) > 60 mL/min >=60 Estimated GFR by using Modified MDRD formula.Chronic kidney disease is defined as either kidney damageor GFR <60 mL/min/1.73 m2 for >3 months. CREATININE (test code=CREAT) 0.60 mg/dL 0.55-1.02 Note change in reference range due to change in reagent. BUN/CREATININE RATIO (test code=BUN/CREA) 19.5 10-20 TOTAL PROTEIN (test code=PROT) 5.0 gram/dL 6.4-8.2 ALBUMIN (test code=ALB) 1.5 g/dL 3.4-5.0 GLOBULIN (test code=GLOB) 3.5 gram/dL 2.7-4.2 ALBUMIN/GLOBULIN RATIO (test code=A/G) 0.4 0.75-1.50 CALCIUM (test code=CA) 8.4 mg/dL 8.5-10.1 BILIRUBIN TOTAL (test code=BILT) 0.60 mg/dL 0.0-1.0 SGOT/AST (test code=AST) 43 IUnit/L 15-37 SGPT/ALT (test code=ALT) 19 IUnit/L 12-78 ALKALINE PHOSPHATASE TOTAL (test code=ALKP) 84 IUnit/L 45-117 Note change in reference range due to change in reagent. VITAMIN [id number] 00:02:00* Test Item Value Reference Range Comments VITAMIN B12 (test code=VITB12) 187 pg/mL 193-986 FOLIC [id number] 00:02:00* Test Item Value Reference Range Comments FOLIC ACID (test code=FOL) 11.2 ng/mL 3.10-17.50 THYROID STIMULATING [id number] 00:02:00* Test Item Value Reference Range Comments THYROID STIMULATING HORMONE (test code=TSH) 1.400 uIU/mL 0.36-3.74 TSH REFERENCE RANGES: EUTHYROID: 0.35 - 4.3 mIU/mL HYPO : > 5.5 mIU/mL HYPER : < 0.35 mIU/mL CBC W/AUTO [id number] 23:44:00* Test Item Value Reference Range Comments WHITE BLOOD CELL (test code=WBC) 7.4 K/mm3 4.5-12.5 RED BLOOD CELL (test code=RBC) 2.99 mill/mm3 3.7-5.2 HEMOGLOBIN (test code=HGB) 6.8 gram/dL 11.5-15.5 HEMATOCRIT (test code=HCT) 23.0 % 36.0-46.0 MEAN CELL VOLUME (test code=MCV) 76.9 fL 80-98 MEAN CELL HGB (test code=MCH) 22.7 picogram 27.0-33.0 MEAN CELL HGB CONCETRATION (test code=MCHC) 29.6 gram/dL 33.0-36.0 RED CELL DISTRIBUTION WIDTH (test code=RDW) 21.7 % 11.6-16.2 RED CELL DISTRIBUTION WIDTH SD (test code=RDW-SD) 58.5 fL 37.0-51.0 PLATELET COUNT (test code=PLT) 236 K/mm3 150-450 MEAN PLATELET VOLUME (test code=MPV) 9.3 fL 6.7-11.0 NEUTROPHIL % (test code=NT%) 59.5 % 39.0-69.0 IMMATURE GRANULOCYTE % (test code=IG%) 0.9 % 0.0-5.0 LYMPHOCYTE % (test code=LY%) 15.0 % 25.0-55.0 MONOCYTE % (test code=MO%) 18.4 % 0.0-10.0 EOSINOPHIL % (test code=EO%) 5.9 % 0.0-5.0 BASOPHIL % (test code=BA%) 0.3 % 0.0-1.0 NUCLEATED RBC % (test code=NRBC%) 0.0 % 0-0 NEUTROPHIL # (test code=NT#) 4.40 K/mm3 1.8-7.7 IMMATURE GRANULOCYTE # (test code=IG#) 0.07 x10 3/uL 0-0.03 LYMPHOCYTE # (test code=LY#) 1.11 K/mm3 1.0-5.0 MONOCYTE # (test code=MO#) 1.36 K/mm3 0-0.8 EOSINOPHIL # (test code=EO#) 0.44 K/mm3 0.0-0.5 BASOPHIL # (test code=BA#) 0.02 K/mm3 0.0-0.2 NUCLEATED RBC # (test code=NRBC#) 0.00 K/mm3 0.0-0.1 MANUAL DIFF REQUIRED (test code=MDIFF) NO, ONLY SCAN NEEDED DIFFERENTIAL [id number] 23:44:00* Test Item Value Reference Range Comments STAIN ACCEPTABILITY (test code=STN ACCEPTABLE) STAIN ACCEPTABLE POLYCHROMASIA (test code=POLC) 1+ HYPOCHROMIA (test code=HYPO) 1+ ANISOCYTOSIS (test code=ANISO) 1+ MICROCYTOSIS (test code=MICR) 2+ PLATELET ESTIMATE (test code=PLTEST) ADEQUATE PLATELET MORPHOLOGY (test code=PLTMORPH) NORMAL COMPREHENSIVE METABOLIC [id number] 23:37:00* Test Item Value Reference Range Comments SODIUM (test code=NA) 137 mmol/L 136-145 POTASSIUM (test code=K) 2.9 mmol/L 3.5-5.1 Results called to [id number] by AMPARO 10/22/18 2331Critical results verified and read back by Nurse? Y CHLORIDE (test code=CL) 100.0 mmol/L 98-107 CARBON DIOXIDE (test code=CO2) 29.0 mmol/L 21-32 ANION GAP (test code=GAP) 10.9 10-20 GLUCOSE (test code=GLU) 164 mg/dL 74-106 BLOOD UREA NITROGEN (test code=BUN) 11 mg/dL 7-18 GLOMERULAR FILTRATION RATE (test code=GFR) > 60 mL/min >=60 Estimated GFR by using Modified MDRD formula.Chronic kidney disease is defined as either kidney damageor GFR <60 mL/min/1.73 m2 for >3 months. CREATININE (test code=CREAT) 0.60 mg/dL 0.55-1.02 Note change in reference range due to change in reagent. BUN/CREATININE RATIO (test code=BUN/CREA) 19.5 10-20 TOTAL PROTEIN (test code=PROT) 5.0 gram/dL 6.4-8.2 ALBUMIN (test code=ALB) 1.5 g/dL 3.4-5.0 GLOBULIN (test code=GLOB) 3.5 gram/dL 2.7-4.2 ALBUMIN/GLOBULIN RATIO (test code=A/G) 0.4 0.75-1.50 CALCIUM (test code=CA) 8.4 mg/dL 8.5-10.1 BILIRUBIN TOTAL (test code=BILT) 0.60 mg/dL 0.0-1.0 SGOT/AST (test code=AST) 43 IUnit/L 15-37 SGPT/ALT (test code=ALT) 19 IUnit/L 12-78 ALKALINE PHOSPHATASE TOTAL (test code=ALKP) 84 IUnit/L 45-117 Note change in reference range due to change in reagent. VITAMIN [id number] 23:37:00* Test Item Value Reference Range Comments VITAMIN B12 (test code=VITB12) pg/mL 193-986 FOLIC [id number] 23:37:00* Test Item Value Reference Range Comments FOLIC ACID (test code=FOL) ng/mL 3.10-17.50 THYROID STIMULATING [id number] 23:37:00* Test Item Value Reference Range Comments THYROID STIMULATING HORMONE (test code=TSH) uIU/mL 0.36-3.74 COMPREHENSIVE METABOLIC [id number] 23:31:00* Test Item Value Reference Range Comments SODIUM (test code=NA) 137 mmol/L 136-145 POTASSIUM (test code=K) 2.9 mmol/L 3.5-5.1 Results called to [id number] by AMPARO 10/22/18 2331Critical results verified and read back by Nurse? Y CHLORIDE (test code=CL) 100.0 mmol/L 98-107 CARBON DIOXIDE (test code=CO2) mmol/L 21-32 ANION GAP (test code=GAP) 10-20 GLUCOSE (test code=GLU) mg/dL 74-106 BLOOD UREA NITROGEN (test code=BUN) mg/dL 7-18 GLOMERULAR FILTRATION RATE (test code=GFR) mL/min >=60 CREATININE (test code=CREAT) mg/dL 0.55-1.02 BUN/CREATININE RATIO (test code=BUN/CREA) 10-20 TOTAL PROTEIN (test code=PROT) gram/dL 6.4-8.2 ALBUMIN (test code=ALB) g/dL 3.4-5.0 GLOBULIN (test code=GLOB) gram/dL 2.7-4.2 ALBUMIN/GLOBULIN RATIO (test code=A/G) 0.75-1.50 CALCIUM (test code=CA) mg/dL 8.5-10.1 BILIRUBIN TOTAL (test code=BILT) mg/dL 0.0-1.0 SGOT/AST (test code=AST) IUnit/L 15-37 SGPT/ALT (test code=ALT) IUnit/L 12-78 ALKALINE PHOSPHATASE TOTAL (test code=ALKP) IUnit/L 45-117 VITAMIN [id number] 23:31:00* Test Item Value Reference Range Comments VITAMIN B12 (test code=VITB12) pg/mL 193-986 FOLIC [id number] 23:31:00* Test Item Value Reference Range Comments FOLIC ACID (test code=FOL) ng/mL 3.10-17.50 THYROID STIMULATING [id number] 23:31:00* Test Item Value Reference Range Comments THYROID STIMULATING HORMONE (test code=TSH) uIU/mL 0.36-3.74 CBC W/AUTO [id number] 23:13:00* Test Item Value Reference Range Comments WHITE BLOOD CELL (test code=WBC) 7.4 K/mm3 4.5-12.5 RED BLOOD CELL (test code=RBC) 2.99 mill/mm3 3.7-5.2 HEMOGLOBIN (test code=HGB) 6.8 gram/dL 11.5-15.5 HEMATOCRIT (test code=HCT) 23.0 % 36.0-46.0 MEAN CELL VOLUME (test code=MCV) 76.9 fL 80-98 MEAN CELL HGB (test code=MCH) 22.7 picogram 27.0-33.0 MEAN CELL HGB CONCETRATION (test code=MCHC) 29.6 gram/dL 33.0-36.0 RED CELL DISTRIBUTION WIDTH (test code=RDW) 21.7 % 11.6-16.2 RED CELL DISTRIBUTION WIDTH SD (test code=RDW-SD) 58.5 fL 37.0-51.0 PLATELET COUNT (test code=PLT) 236 K/mm3 150-450 MEAN PLATELET VOLUME (test code=MPV) 9.3 fL 6.7-11.0 NEUTROPHIL % (test code=NT%) 59.5 % 39.0-69.0 IMMATURE GRANULOCYTE % (test code=IG%) 0.9 % 0.0-5.0 LYMPHOCYTE % (test code=LY%) 15.0 % 25.0-55.0 MONOCYTE % (test code=MO%) 18.4 % 0.0-10.0 EOSINOPHIL % (test code=EO%) 5.9 % 0.0-5.0 BASOPHIL % (test code=BA%) 0.3 % 0.0-1.0 NUCLEATED RBC % (test code=NRBC%) 0.0 % 0-0 NEUTROPHIL # (test code=NT#) 4.40 K/mm3 1.8-7.7 IMMATURE GRANULOCYTE # (test code=IG#) 0.07 x10 3/uL 0-0.03 LYMPHOCYTE # (test code=LY#) 1.11 K/mm3 1.0-5.0 MONOCYTE # (test code=MO#) 1.36 K/mm3 0-0.8 EOSINOPHIL # (test code=EO#) 0.44 K/mm3 0.0-0.5 BASOPHIL # (test code=BA#) 0.02 K/mm3 0.0-0.2 NUCLEATED RBC # (test code=NRBC#) 0.00 K/mm3 0.0-0.1 MANUAL DIFF REQUIRED (test code=MDIFF) NO, ONLY SCAN NEEDED DIFFERENTIAL [id number] 23:13:00* Test Item Value Reference Range Comments STAIN ACCEPTABILITY (test code=STN ACCEPTABLE) CABOT RINGS (test code=CAB) MORPHOLOGY COMMENT (test code=MOC) PLATELET ESTIMATE (test code=PLTEST) PLATELET MORPHOLOGY (test code=PLTMORPH) CBC W/AUTO [id number] 23:13:00* Test Item Value Reference Range Comments WHITE BLOOD CELL (test code=WBC) 7.4 K/mm3 4.5-12.5 RED BLOOD CELL (test code=RBC) 2.99 mill/mm3 3.7-5.2 HEMOGLOBIN (test code=HGB) 6.8 gram/dL 11.5-15.5 HEMATOCRIT (test code=HCT) 23.0 % 36.0-46.0 MEAN CELL VOLUME (test code=MCV) 76.9 fL 80-98 MEAN CELL HGB (test code=MCH) 22.7 picogram 27.0-33.0 MEAN CELL HGB CONCETRATION (test code=MCHC) 29.6 gram/dL 33.0-36.0 RED CELL DISTRIBUTION WIDTH (test code=RDW) 21.7 % 11.6-16.2 RED CELL DISTRIBUTION WIDTH SD (test code=RDW-SD) 58.5 fL 37.0-51.0 PLATELET COUNT (test code=PLT) 236 K/mm3 150-450 MEAN PLATELET VOLUME (test code=MPV) 9.3 fL 6.7-11.0 NEUTROPHIL % (test code=NT%) 59.5 % 39.0-69.0 IMMATURE GRANULOCYTE % (test code=IG%) 0.9 % 0.0-5.0 LYMPHOCYTE % (test code=LY%) 15.0 % 25.0-55.0 MONOCYTE % (test code=MO%) 18.4 % 0.0-10.0 EOSINOPHIL % (test code=EO%) 5.9 % 0.0-5.0 BASOPHIL % (test code=BA%) 0.3 % 0.0-1.0 NUCLEATED RBC % (test code=NRBC%) 0.0 % 0-0 NEUTROPHIL # (test code=NT#) 4.40 K/mm3 1.8-7.7 IMMATURE GRANULOCYTE # (test code=IG#) 0.07 x10 3/uL 0-0.03 LYMPHOCYTE # (test code=LY#) 1.11 K/mm3 1.0-5.0 MONOCYTE # (test code=MO#) 1.36 K/mm3 0-0.8 EOSINOPHIL # (test code=EO#) 0.44 K/mm3 0.0-0.5 BASOPHIL # (test code=BA#) 0.02 K/mm3 0.0-0.2 NUCLEATED RBC # (test code=NRBC#) 0.00 K/mm3 0.0-0.1 MANUAL DIFF REQUIRED (test code=MDIFF) NO, ONLY SCAN NEEDED DIFFERENTIAL [id number] 23:13:00* Test Item Value Reference Range Comments STAIN ACCEPTABILITY (test code=STN ACCEPTABLE) CABOT RINGS (test code=CAB) MORPHOLOGY COMMENT (test code=MOC) PLATELET ESTIMATE (test code=PLTEST) PLATELET MORPHOLOGY (test code=PLTMORPH) CBC W/AUTO [id number] 23:13:00* Test Item Value Reference Range Comments WHITE BLOOD CELL (test code=WBC) 7.4 K/mm3 4.5-12.5 RED BLOOD CELL (test code=RBC) 2.99 mill/mm3 3.7-5.2 HEMOGLOBIN (test code=HGB) 6.8 gram/dL 11.5-15.5 HEMATOCRIT (test code=HCT) 23.0 % 36.0-46.0 MEAN CELL VOLUME (test code=MCV) 76.9 fL 80-98 MEAN CELL HGB (test code=MCH) 22.7 picogram 27.0-33.0 MEAN CELL HGB CONCETRATION (test code=MCHC) 29.6 gram/dL 33.0-36.0 RED CELL DISTRIBUTION WIDTH (test code=RDW) 21.7 % 11.6-16.2 RED CELL DISTRIBUTION WIDTH SD (test code=RDW-SD) 58.5 fL 37.0-51.0 PLATELET COUNT (test code=PLT) 236 K/mm3 150-450 MEAN PLATELET VOLUME (test code=MPV) 9.3 fL 6.7-11.0 NEUTROPHIL % (test code=NT%) 59.5 % 39.0-69.0 IMMATURE GRANULOCYTE % (test code=IG%) 0.9 % 0.0-5.0 LYMPHOCYTE % (test code=LY%) 15.0 % 25.0-55.0 MONOCYTE % (test code=MO%) 18.4 % 0.0-10.0 EOSINOPHIL % (test code=EO%) 5.9 % 0.0-5.0 BASOPHIL % (test code=BA%) 0.3 % 0.0-1.0 NUCLEATED RBC % (test code=NRBC%) 0.0 % 0-0 NEUTROPHIL # (test code=NT#) 4.40 K/mm3 1.8-7.7 IMMATURE GRANULOCYTE # (test code=IG#) 0.07 x10 3/uL 0-0.03 LYMPHOCYTE # (test code=LY#) 1.11 K/mm3 1.0-5.0 MONOCYTE # (test code=MO#) 1.36 K/mm3 0-0.8 EOSINOPHIL # (test code=EO#) 0.44 K/mm3 0.0-0.5 BASOPHIL # (test code=BA#) 0.02 K/mm3 0.0-0.2 NUCLEATED RBC # (test code=NRBC#) 0.00 K/mm3 0.0-0.1 MANUAL DIFF REQUIRED (test code=MDIFF) NO, ONLY SCAN NEEDED DIFFERENTIAL [id number] 23:13:00* Test Item Value Reference Range Comments STAIN ACCEPTABILITY (test code=STN ACCEPTABLE) MORPHOLOGY COMMENT (test code=MOC) PLATELET ESTIMATE (test code=PLTEST) PLATELET MORPHOLOGY (test code=PLTMORPH) CBC W/AUTO [id number] 23:13:00* Test Item Value Reference Range Comments WHITE BLOOD CELL (test code=WBC) 7.4 K/mm3 4.5-12.5 RED BLOOD CELL (test code=RBC) 2.99 mill/mm3 3.7-5.2 HEMOGLOBIN (test code=HGB) 6.8 gram/dL 11.5-15.5 HEMATOCRIT (test code=HCT) 23.0 % 36.0-46.0 MEAN CELL VOLUME (test code=MCV) 76.9 fL 80-98 MEAN CELL HGB (test code=MCH) 22.7 picogram 27.0-33.0 MEAN CELL HGB CONCETRATION (test code=MCHC) 29.6 gram/dL 33.0-36.0 RED CELL DISTRIBUTION WIDTH (test code=RDW) 21.7 % 11.6-16.2 RED CELL DISTRIBUTION WIDTH SD (test code=RDW-SD) 58.5 fL 37.0-51.0 PLATELET COUNT (test code=PLT) 236 K/mm3 150-450 MEAN PLATELET VOLUME (test code=MPV) 9.3 fL 6.7-11.0 NEUTROPHIL % (test code=NT%) 59.5 % 39.0-69.0 IMMATURE GRANULOCYTE % (test code=IG%) 0.9 % 0.0-5.0 LYMPHOCYTE % (test code=LY%) 15.0 % 25.0-55.0 MONOCYTE % (test code=MO%) 18.4 % 0.0-10.0 EOSINOPHIL % (test code=EO%) 5.9 % 0.0-5.0 BASOPHIL % (test code=BA%) 0.3 % 0.0-1.0 NUCLEATED RBC % (test code=NRBC%) 0.0 % 0-0 NEUTROPHIL # (test code=NT#) 4.40 K/mm3 1.8-7.7 IMMATURE GRANULOCYTE # (test code=IG#) 0.07 x10 3/uL 0-0.03 LYMPHOCYTE # (test code=LY#) 1.11 K/mm3 1.0-5.0 MONOCYTE # (test code=MO#) 1.36 K/mm3 0-0.8 EOSINOPHIL # (test code=EO#) 0.44 K/mm3 0.0-0.5 BASOPHIL # (test code=BA#) 0.02 K/mm3 0.0-0.2 NUCLEATED RBC # (test code=NRBC#) 0.00 K/mm3 0.0-0.1 MANUAL DIFF REQUIRED (test code=MDIFF) NO, ONLY SCAN NEEDED DIFFERENTIAL [id number] 23:13:00* Test Item Value Reference Range Comments STAIN ACCEPTABILITY (test code=STN ACCEPTABLE) CABOT RINGS (test code=CAB) MORPHOLOGY COMMENT (test code=MOC) PLATELET ESTIMATE (test code=PLTEST) PLATELET MORPHOLOGY (test code=PLTMORPH) CT CERVICAL SPINE [id number] 13:15:00 [place] [id number] Patient Name: EDMUND SINGH MR #: [id number] : 1930 Age/Sex: 87/F Req #: [id number] Adm Physician: Ordered by: BLANCA ROACH MD Report #: [id number] Location: ER Room/Bed: Procedure: [id number] CT/C T CERVICAL SPINE WO Exam Date: 05/30/18 Exam Time: 1 000 REPORT STATUS: Signed Histor y: Left-sided shoulder pain Comparison studies: None Technique: Axial images were obtained through the cervical region. Coronal and sagittal images reconstructed from the axial data. Intravenous contrast: None Dose modula tion, iterative reconstruction, and/or weight based adjustment of the mA/kV wa s utilized to reduce the radiation dose to as low as reasonably achievable. Findings: Atlantoaxial articulation: Degenerative changes without acute abnormality Alignment: Normal lordosis No scoliosis. Cervicomedullary juncti on: No abnormalities. Patent foramen magnum. Soft tissues: No gross abnormal ities. Vertebrae: No fractures, neoplasm or infection. Degenerativ e changes: C2-C3: Patent spinal canal and foramina . C3-4: Disc d egeneration with decreased intervertebral space. Asymmetric left disc osteophy te complex, bilateral uncinate process and facet hypertrophy results in no sig nificant canal stenosis, mild right and moderate left foraminal narrowing . C4-5: Disc degeneration with decreased intervertebral space. Diffuse disc o steophyte complex, bilateral uncinate process hypertrophy results in mild diane l stenosis, moderate right and mild left foraminal narrowing. C5-6: Dis c degeneration with decreased intervertebral space and mild endplate sclerotic changes. Subcentimeter pneumatocyst C5 superior endplate. Diffuse disc osteop hyte complex, Bilateral uncinate processes and facet hypertrophy results in mi ld canal stenosis and moderate bilateral foraminal narrowing . C6-7: Naik nt spinal canal and foramina . C7-T1: Patent spinal canal and foramina . IMPRESSION: 1. No acute cervical abnormality. 2. Moderate mul tilevel degenerative foraminal narrowing at C3-4 on the left, C4-5 on the righ t and C5-6 bilaterally. Mild multilevel foraminal narrowing at the upper and m id cervical spine. 3. Mild degenerative canal stenosis at 4-5 and C5-6. Ot her degenerative changes as described above Signed by: DR Konrad lopez M.D. on 05/30/2018 1:59 PM Dictated By: KONRAD GUZMAN MD Elec tronically Signed By: KONRAD GUZMAN MD on 05/30/18 0328 Transcribed By: EMILIE DAILEY on 05/30/18 7813 COPY TO: BLANCA ROACH MD SHOULDER LEFT [id number] 10:43:00 [address], [place] [address] Patient Name: EDMUND SINGH MR #: [id number] : 1930 Age/Sex: 87/F Req #: [id number] Adm Physician: Ordered by: BLANCA ROACH MD Report #: [id number] Location: ER Room/Bed: Procedure: [id number] DX/S CHYNA LEFT COMPLETE Exam Date: 05/30/18 Exam Time: 1030 REPORT STATUS: Signed E xam: Left shoulder 2 views History: Pain x1 week Comparison: None. Findings: No acute, displaced fracture or dislocation. Humeral head projects appropriately adjacent to the glenoid. Moderate glenohumeral and acromiocla vicular joint space narrowing with marginal osteophytosis. Irregularity of the greater humeral tuberosity likely reflects rotator cuff tendinosis. Left subclavian approach implantable cardiac device partially visualized. Left upp er lung is grossly clear. Soft tissues unremarkable. Impression: No ac [place] osseous abnormalities. Moderate acromioclavicular and glenohumeral dege nerative joint disease. Signed by: Dr. Axel Oviedo M.D. on 05/30/2018 10:45 AM Dictated By: AXEL OVIEDO MD [id number] Transcribed By: GEORGE on 05/30/18 1041 COPY TO: BLANCA ROACH MD
[2018-11-06 07:48] LABS: BASOPHILS % 0.2 % (0.0-1.0); EOSINOPHILS # (AUTO) 0.1 (0.0-0.4); EOSINOPHILS % 1.5 % (0.0-6.0); HEMATOCRIT 27.7 % (34.2-44.1); HEMOGLOBIN 8.5 g/dL (12.0-16.0); LYMPHOCYTES # (AUTO) 0.7 (1.0-3.2); LYMPHOCYTES % 7.4 % (18.0-39.1); MEAN CORPUSCULAR HGB CONC 30.7 g/dL (31-35); MEAN CORPUSCULAR VOLUME 81.5 fL (81-99); MONOCYTES # (AUTO) 1.1 (0.2-0.8); MONOCYTES % 11.4 % (4.4-11.3); NEUTROPHILS # (AUTO) 7.3 (2.1-6.9); NEUTROPHILS % 77.7 % (38.7-80.0); PLATELET COUNT 239 x10e3/uL (140-360); RED CELL DISTRIBUTION WIDTH 23.1 % (11.7-14.4)
[2018-11-06] MEDS ORDERED: POTASSIUM CHLO20 ME1 PO (08:05)
[2018-11-06] MEDS ORDERED: CARAFATE1 GM/10 ML PO (08:05)
[2018-11-06 08:09] LABS: ALANINE AMINOTRANSFERASE 15 IU/L (0-55); ALBUMIN 1.6 g/dL (3.5-5.0); ALBUMIN/GLOBULIN RATIO 0.4 (0.8-2.0); ALKALINE PHOSPHATASE 94 IU/L (40-150); ANION GAP 18.6 mmol/L (8-16); BLOOD UREA NITROGEN 16 mg/dL (7-26); BUN/CREATININE RATIO 27 (6-25); CALCIUM 9.4 mg/dL (8.4-10.2); CARBON DIOXIDE 24 mmol/L (22-29); CHLORIDE 98 mmol/L (98-107); CREATININE, SERUM 0.59 mg/dL (0.57-1.11); EST GLOMERULAR FILTRATION RATE > 60 ML/MIN (60-); GLUCOSE 105 mg/dL (74-118); POTASSIUM 3.6 mmol/L (3.5-5.1); SODIUM 137 mmol/L (136-145)
[2018-11-06] MEDS ORDERED: PIPER-TAZ 3.375 GM 100 ML IV STA (08:18)
[2018-11-06] MEDS ORDERED: SODIUM CHLORIDE 0.9% 1000ML 2,000 ML IV SCH (08:30)
[2018-11-06] MEDS ORDERED: SODIUM CHLORIDE 0.9% 250ML 250 ML ONE (08:32)
[2018-11-06 08:38] LABS: INR 1.09; PROTHROMBIN TIME 14.6 seconds (11.9-14.5)
[2018-11-06 08:39] LABS: PARTIAL THROMBOPLASTIN TIME 31.7 seconds (23.8-35.5)
[2018-11-06] MEDS ORDERED: SODIUM CHLORIDE 0.9% IV NR (08:45)
--- NOTE | 2018-11-06 08:49 | NUR ---
PATIENT HAD RUN OF VTACH THEN CONVERTED BACK TO SR, ER MD MADE AWARE AND EVALUATED PATIENT.
[2018-11-06 08:50] LABS: BILIRUBIN,URINE MODERATE (NEGATIVE); CLARITY,URINE CLOUDY (CLEAR); COLOR,URINE YELLOW (YELLOW); KETONES,URINE NEGATIVE (NEGATIVE); LEUKOCYTE ESTERASE ,URINE NEGATIVE (NEGATIVE); NITRITE,URINE NEGATIVE (NEGATIVE); PROTEIN,URINE DIPSTICK 2+ (NEGATIVE)
[2018-11-06 08:51] LABS: CREATINE KINASE MB 0.8 ng/mL (0-5.0)
[2018-11-06 08:55] LABS: AMORPHOUS SEDIMENT,URINE MODERATE (FEW); BACTERIA,URINE MANY /HPF; EPITHELIAL CELLS,URINE MANY /LPF; MUCUS,URINE MODERATE (RARE); RBC,URINE 0-5 /HPF (0-5)
--- NOTE | 2018-11-06 09:21 | Diagnostic Imaging Report ---
EXAMINATION: CHEST SINGLE (PORTABLE) INDICATION: Sepsis, trauma COMPARISON: Shoulder radiograph of 05/30/2018 FINDINGS: LINES/TUBES:Left pacer with 2 leads injecting over the right atrium and right ventricle. EKG leads overlie the chest. LUNGS:The lungs are moderately inflated. 9 mm right peripheral midlung zone calcified granuloma. No focal consolidation or pulmonary edema. PLEURA:No pleural effusion or pneumothorax. MEDIASTINUM:The cardiomediastinal silhouette is at the upper limits of normal for size. Atherosclerotic calcifications of the thoracic aorta. BONES/SOFT TISSUES:No acute osseous injury. ABDOMEN:No free air under the diaphragm. IMPRESSION: No focal pneumonia or pulmonary edema. Signed by: Wilda Adkins MD on 11/06/2018 9:17 AM
[2018-11-06 10:47] LABS: PLATELET ESTIMATE ADEQUATE; PLATELET MORPHOLOGY COMMENT NORMAL; RBC MORPHOLOGY COMMENT NORMAL
[2018-11-06 12:00] VITALS: BP 126/58
[2018-11-06 13:06] VITALS: BP 126/58
[2018-11-06] MEDS: PIPER-TAZ 3.375 GM 50 ML IV SCH ×2 (14:34→23:10)
[2018-11-06] MEDS: SODIUM CHLORIDE 0.9% 1000ML 1,000 ML IV SCH ×2 (14:34→23:10)
[2018-11-06 16:00] VITALS: BP 104/52
[2018-11-06 17:00] VITALS: BP 159/67
--- NOTE | 2018-11-06 19:50 | NUR ---
Patient received lying quietly in bed. vss. no c/o pain noted. ivf continue to infuse without difficulty. family noted at the bedside. family instructed to call for assistance when needed.
[2018-11-06 20:00] VITALS: BP 120/58
[2018-11-06 20:03] VITALS: BP 120/58
[2018-11-06] MEDS ORDERED: DEXTROSE 50% SYRINGE 50 ML IV PRN ×2 (21:30)
[2018-11-06] MEDS: INSULIN REGULAR, HUMAN 100 UNIT/1 ML 3ML VIAL SQ SCH (21:39)
[2018-11-07] VITALS (8 sets, daily range): BP systolic 118–137; BP diastolic 55–63
[2018-11-07] MEDS: PIPER-TAZ 3.375 GM 50 ML IV SCH (05:48)
--- NOTE | 2018-11-07 06:51 | NUR ---
The patient is laying in bed comfortably.Oxygen via NC @2L. I placed a nonadherent dressing secured with kerlix on the right ear tumor as it started draining serosanguineous fluid after repositioning her. IV patent with no complications. Bed is low, wheels are locked and call light is within reach.
[2018-11-07] MEDS ORDERED: INSULIN REGULAR, HUMAN 100 UNIT/1 ML 3ML VIAL SQ SCH (07:30)
[2018-11-07] MEDS ORDERED: PANTOPRAZOLE SO40 MG (07:43)
[2018-11-07] MEDS ORDERED: VANCOMYCIN 1GM/NS 250 ML 250 ML IV SCH (09:00)
--- NOTE | 2018-11-07 09:13 | NUR ---
CM SPOKE TO PATIENT AND PATIENT DAUGHTER AT BEDSIDE REGARDING PLAN OF CARE AND DISCHARGE PLAN. PATIENT DAUGHTER INQUIRING ABOUT PET SCAN THAT WAS SCHEDULED OUTPATIENT. PATIENT DAUGHTER AND PATIENT INFORMED THAT IT MAY NOT BE COVERED BECAUSE IT IS AN OUTPATIENT PROCEDURE NOT RELATED TO THE REASON FOR HER HOSPITAL ADMISSION. PATIENT AND PATIENT DAUGHTER STATES THEY UNDERSTAND AND REQUESTS HOME HEALTH SERVICES FOR PT/ OT AND SN EVAL. CM SPOKE TP DR. ROBLEDO REGARDING PATIENT REQUEST AND RECEIVED VERBAL ORDER FOR HOME HEALTH SN EVAL AND PT/ OT. PATIENT SIGNED CHOICE FOR [facility]. CLINICAL SENT TO [facility] AND [facility]IA[facility] WILDA NOTIFIED. CM NOTIFIED DR. ROBLEDO REGARDING REQUEST TO BE DISCHARGED TODAY SINCE THEY HAD TO MAKE PET SCAN APPOINTMENT TOMORROW IN ORDER TO START RADIATION TREATMENT. DR. ROBLEDO STATES HE SPOKE TO THEM AND DOESN'T KNOW AT THIS TIME WHETHER HE WILL DISCHARGE PATIENT OR NOT.
--- NOTE | 2018-11-07 09:26 | NUR ---
DISCHARGE DISPOSITION HOME WITH HOME HEALTH SN EVAL AND PT/OT EVAL AND TREAT: [facility] (P) [phone] (F)[phone]
[2018-11-07] MEDS: SUCRALFATE 1 GM/10 ML SUSP PO SCH ×2 (09:46→17:03)
[2018-11-07] MEDS: CLINDAMYCIN 300MG 50 ML IV SCH ×3 (09:47→21:31)
[2018-11-07] MEDS ORDERED: POTASSIUM CHLORIDE 10MEQ EA PO ONE (10:00)
[2018-11-07] MEDS ORDERED: FUROSEMIDE INJ 10 MG/ML 4 ML VIAL IV ONE (10:00)
[2018-11-07] MEDS: AZTREONAM 1 GM/NS 50 ML 50 ML IV SCH ×2 (10:10→18:24)
[2018-11-07] MEDS ORDERED: HYDROCODONE/APAP 5MG-325MG TAB PO PRN (10:15)
--- NOTE | 2018-11-07 11:12 | NUR ---
per oncology no xray's to be done, he spoke with daughter at bedside. per MD even if fracture is present no plans to pursue surgery, daughter agreed. awaiting family decision on changing code status to DNR and also pending family decision on hospice/palliative care.
--- NOTE | 2018-11-07 11:13 | NUR ---
GOT REFERRAL FOR SOC SERVICE TO ANSWER QUESTIONS ABOUT HOSPICE, GAVE THREE OPTIONS, DAUGHTER STATES DR PAN TOLD HER SHE SHOULD CONSIDER, SHE NEEDS TO SPEAK WITH FAMILY TO DETERMINE IF HOME OR A FACILITY, LEFT CARD FOR HER TO CALL WITH A DECISION EITHER WAY.
[2018-11-07] MEDS: INSULIN REGULAR, HUMAN 100 UNIT/1 ML 3ML VIAL SQ SCH ×3 (11:30→21:31)
--- NOTE | 2018-11-07 14:39 | NUR ---
WOUND CARE NURSE INITIAL CONSULTATION. 87 YEAR OLD FEMALE ADMITTED TO [facility] WITH DX OF NEAR SYNCOPE AND SEPSIS. HEAD TO TOE SKIN ASSESSMENT PERFORMED TODAY. PT PRESENTS WITH CANCEROUS TUMOR TO RIGHT EAR AND RIGHT LOWER JAW. LARGE AMOUNT OF SEROSANGUINEOUS DRAINAGE PRESENT. 4+ PITTING EDEMA TO BILATERAL LOWER EXTREMITIES IS NOTED. 2X3CM DTI TO LEFT HIP IS ALSO PRESENT. ATTEMPTED TO PUT DRESSING ON RIGHT EAR, BUT FAMILY IS REFUSING, REQUESTING TO BE LEFT OPEN TO AIR. EDUCATED THEM OF S/S OF INFECTION AND INFECTION PREVENTION. THEY BOTH STATE UNDERSTANDING, BUT CONTINUE TO REFUSE DRESSING. THERE ARE NO OTHER AREAS OF CONCERN NOTED AT THIS TIME. NO S/S OF INFECTION. LABS: WBC: 9.35 ALB: 1.6 GLUCOSE: 215 URINE AND BLOOD CX RESULTS ARE PENDING AT THIS TIME. RECOMMENDATIONS: APPLY ALLEVYN FOAM TO LEFT HIP AND CHANGE DAILY. CLEAN RIGHT EAR WITH NS, PAT DRY AND APPLY MAXORB AG COVER WITH ABD PAD AND TAPE. CHANGE DRESSING DAILY AND PRN. CONTINUE WITH ALTERNATING LOW AIR LOSS MATTRESS PROVIDE PT WITH BILATERAL HEEL PROTECTORS AND SUSPENSIONS. REPOSITION PT EVERY TWO HOURS AND PRN. THANKS FOR THIS CONSULTATION. Addendum: 11/07/18 at 1451 by Jennifer Savage RN Amended: Links added.
--- NOTE | 2018-11-07 15:40 | History and Physical ---
ROLL SHEETING CUTTER: Justin Buenrostro MD CHIEF COMPLAINT: Generalized weakness and fall. HISTORY OF PRESENT ILLNESS: This patient is an 87-year-old female who has a generalized weakness progressively due to the patient's advanced B-cell lymphoma. The patient has right facial mass secondary to the lymphoma. She was recently discharged from the hospital after blood transfusion. Her hemoglobin and hematocrit are stable at 8.5 and 27.7. The patient has an appointment for a PET scan that will be done as an outpatient tomorrow Sunday. The patient is progressively weak due to her lymphoma. She is third spacing secondary to severe low albumin. The patient is otherwise respiratory stable. She does have urinary tract infection. PAST MEDICAL HISTORY: 1. Advanced B-cell lymphoma. 2. Chronic anemia secondary to the lymphoma and bone marrow suppression. 3. Generalized weakness. 4. Obesity. 5. Low albumin with third-spacing of the lower extremity. 6. Baseline diabetes type 2. 7. Hypertension. SOCIAL HISTORY: The patient does not smoke or use alcohol. She lives with her family. ALLERGIES: 1. CIPRO. 2. BACTRIM. 3. DOXYCYCLINE. 4. KEFLEX. 5. IBUPROFEN. 6. LOVASTATIN. 7. JANUVIA. 8. CEFDINIR. HOME MEDICATIONS: 1. Furosemide. 2. Glipizide. 3. Irbesartan. 4. Omeprazole. 5. Potassium. 6. Carafate. PHYSICAL EXAMINATION: VITAL SIGNS: Temperature is 99, blood pressure is 124/60, pulse rate is 112, and respiration 18. GENERAL: The patient is awake. She is generally weak. HEENT: Right facial mass. No laceration. No gross injury. PULMONARY: Diminished breath sounds bilaterally. CARDIOVASCULAR: S1, S2. Tachycardia. ABDOMEN: Soft and obese. EXTREMITIES: Third-spacing with edema bilaterally. NEUROLOGIC: No gross focal deficit. LABORATORY DATA: Sodium is 137, potassium 3.6, chloride 98, bicarb 24, BUN 15, and creatinine 0.6. Glucose 105. WBC is 9.3, hemoglobin 8.5, hematocrit 27.7, and platelet is 239. INR is 1.09. PT is 14.6. PTT 31.7. AST 24 and ALT 15. Alkaline phosphatase 94 and total bilirubin is 1.4. IMPRESSION: 1. Progressive generalized weakness and fall with difficulty walking secondary to her progressive worsening of the B-cell lymphoma. 2. Urinary tract infection. 3. Third spacing of lower extremity edema. 4. Baseline diabetes type 2. 5. Hypertension. PLAN: Consultation with Dr. Justin Buenrostro. We will continue with treating the UTI. Because of her lower extremity swelling, we will obtain a venous Doppler bilaterally. X-ray of the hip and the knee area. We will follow up on the patient's status. MD BRIAN Lo/IRINA /[id number]
--- NOTE | 2018-11-07 16:09 | NUR ---
PT FAMILY CHOSE [facility], REP ZITA BRYAN [phone] CONTACTED AND GIVEN CONTACT FOR FAMILY, PLAN IS TO RETURN HOME TOMORROW WITH [facility]
--- NOTE | 2018-11-07 21:21 | Consultation ---
DATE OF CONSULTATION: REQUESTING PHYSICIAN: Dr. Boo Kelley. REASON FOR CONSULTATION: Followup of lymphoma. HISTORY OF PRESENT ILLNESS: Thank you very kindly, Dr. Kelley for letting me participate in the care of this pleasant 87-year-old female. I have evaluated the patient, reviewed the chart and also discussed the case with you. Briefly, I had initially treated her for a diffuse large B-cell lymphoma extensively involving multiple lymph nodes in the neck, chest, and abdomen. Bone marrow was negative. She was treated in 2010 with CHOP-R chemotherapy. She had significant cytopenia, but with dose reduction and growth factor support, she was able to complete 6 cycles of treatment and achieved a complete remission. She late in 2018 and early 2019, developed a mass on the right side of the neck, which lately has been increasing rather rapidly. Biopsy again revealed a diffuse large B-cell lymphoma. She was to have staging studies for treatment planning, but has declined rapidly with multiple hospital admissions. At this time, she was admitted with a fall and complaining of pain in the knee and the leg area. She has become extremely weak and is mostly bed confined. Additional comorbidities include diabetes mellitus, hypertension. Additional details of the history are as documented in the chart. PHYSICAL EXAMINATION: Revealed an elderly female. She had a large fungating mass involving the right parotid and external ear area with erosion of the skin and multiple enlarged lymph nodes in the right side of the neck and also the submental node. No axillary adenopathy was noted. Lungs appeared clinically clear. Heart size could not be well demarcated. The abdomen is without visceromegaly. Performance status is very poor. She is severely hypoalbuminemic, unable to get up on her own. The tumor is very extensively involving her face and neck. I had a lengthy discussion with the patient's family. She appears in poor general condition and has not been able to keep up with any appointments for staging studies. Her outlook is going to be poor given her age, comorbidities, poor performance status. Option of comfort care and hospice were discussed, the family wants to think and talk it over and are leaning towards comfort care. I have also recommended that she be made a DNR. MD CHARLIE Sanchez/IRINA /[id number]
[2018-11-07] MEDS ORDERED: SODIUM CHLORIDE 0.9% 250ML 250 ML ONE (21:22)
[2018-11-08] VITALS (7 sets, daily range): BP systolic 112–124; BP diastolic 55–63
[2018-11-08] MEDS: AZTREONAM 1 GM/NS 50 ML 50 ML IV SCH ×3 (02:24→17:31)
[2018-11-08] MEDS: CLINDAMYCIN 300MG 50 ML IV SCH ×4 (03:50→22:00)
--- NOTE | 2018-11-08 04:42 | NUR ---
pt IV no longer in place, new 20G IV to left AC, patent with good blood return
[2018-11-08 05:24] LABS: BASOPHILS % 0.2 % (0.0-1.0); EOSINOPHILS # (AUTO) 0.1 (0.0-0.4); EOSINOPHILS % 1.2 % (0.0-6.0); HEMATOCRIT 27.6 % (34.2-44.1); HEMOGLOBIN 8.1 g/dL (12.0-16.0); LYMPHOCYTES % 12.4 % (18.0-39.1); MEAN CORPUSCULAR HEMOGLOBIN 24.6 pg (28-32); MEAN CORPUSCULAR HGB CONC 29.3 g/dL (31-35); MEAN CORPUSCULAR VOLUME 83.9 fL (81-99); MONOCYTES # (AUTO) 1.2 (0.2-0.8); MONOCYTES % 14.4 % (4.4-11.3); NEUTROPHILS # (AUTO) 5.8 (2.1-6.9); NEUTROPHILS % 71.1 % (38.7-80.0); PLATELET COUNT 184 x10e3/uL (140-360); RED BLOOD COUNT 3.29 x10e6/uL (3.6-5.1); RED CELL DISTRIBUTION WIDTH 22.9 % (11.7-14.4)
[2018-11-08 05:51] LABS: ALANINE AMINOTRANSFERASE 13 IU/L (0-55); ALBUMIN 1.4 g/dL (3.5-5.0); ALBUMIN/GLOBULIN RATIO 0.4 (0.8-2.0); ALKALINE PHOSPHATASE 75 IU/L (40-150); ANION GAP 14.3 mmol/L (8-16); BLOOD UREA NITROGEN 16 mg/dL (7-26); BUN/CREATININE RATIO 28 (6-25); CALCIUM 9.4 mg/dL (8.4-10.2); CARBON DIOXIDE 26 mmol/L (22-29); CHLORIDE 102 mmol/L (98-107); CREATININE, SERUM 0.57 mg/dL (0.57-1.11); EST GLOMERULAR FILTRATION RATE > 60 ML/MIN (60-); GLUCOSE 79 mg/dL (74-118); POTASSIUM 3.3 mmol/L (3.5-5.1); SODIUM 139 mmol/L (136-145)
--- NOTE | 2018-11-08 07:06 | NUR ---
received pt lying in bed with eyes closed, Resp even and unlabored. call light within reach.
[2018-11-08] MEDS ORDERED: PANTOPRAZOLE SOD 40 MG TABEC PO SCH (07:30)
[2018-11-08] MEDS: INSULIN REGULAR, HUMAN 100 UNIT/1 ML 3ML VIAL SQ SCH ×4 (07:30→22:13)
[2018-11-08] MEDS: SUCRALFATE 1 GM/10 ML SUSP PO SCH ×2 (08:56→17:28)
[2018-11-08] MEDS ORDERED: POTASSIUM CHLORIDE 10MEQ EA PO NR (09:00)
[2018-11-08] MEDS ORDERED: ACETAMINOPHEN/CODEINE 300MG - 30MG TAB PO PRN (11:15)
--- NOTE | 2018-11-08 14:22 | NUR ---
MET WITH FAMILY AND HOSPICE REP, FAMILY NEEDS TO BE ABLE TO MOVE FURNITURE AROUND AT HOME TO ACCOMMODATE HOSPITAL BED. completed pasrr and rtf and put at nurses station to be ready when auth is obtained.
--- NOTE | 2018-11-08 19:00 | NUR ---
Patient visited in room during nursing rounds. Patient alert and oriented x2-3. Bedbound (total care) and being turned Q2hr. Allevyn (foam dressing) on left hip (C/D/I). Pt is on DNR care at this time per MD (Dr. Buenrostro) order. Bilateral lower extremities especially both feet edematous (3+) and elevated with pillows. Pt hard of hearing on both ears. Daughter (Debra) at bedside visiting. Call hale within reach. Will monitor closely.
--- NOTE | 2018-11-08 19:10 | NUR ---
Nurse (Keith) spoke with Debra (daughter) quietly outside room of pt to inquire if pt aware of DNR status. Debra mentioned she and rest of family will talk to the patient tomorrow and break the news (DNR code status). DNR band not on pt wrist at this time.
--- NOTE | 2018-11-08 20:00 | NUR ---
Patient had a large and loose bowel movement. Diaper and linens changed. Pt cleaned thoroughly. Pt in stable condition.
[2018-11-09 00:09] VITALS: BP 121/58
[2018-11-09] MEDS: AZTREONAM 1 GM/NS 50 ML 50 ML IV SCH ×3 (01:59→18:00)
[2018-11-09] MEDS ORDERED: SODIUM CHLORIDE 0.9% 250ML 250 ML ONE (04:32)
[2018-11-09] MEDS: CLINDAMYCIN 300MG 50 ML IV SCH ×4 (04:37→22:28)
[2018-11-09 06:24] VITALS: BP 102/54
[2018-11-09] MEDS: PANTOPRAZOLE 40 MG 10ML VIAL IV SCH (06:33)
[2018-11-09] MEDS: SUCRALFATE 1 GM/10 ML SUSP PO SCH ×2 (06:34→17:13)
[2018-11-09] MEDS: INSULIN REGULAR, HUMAN 100 UNIT/1 ML 3ML VIAL SQ SCH ×4 (07:30→21:32)
[2018-11-09 08:35] VITALS: BP 108/55
--- NOTE | 2018-11-09 08:38 | NUR ---
Spoke with Dr. Kelley regarding discharge plan. Per social services technician, patient will be going home Sunday morning with [facility]. Family needed to make arrangements over this weekend to be able to accommodate medical equipment at home.
[2018-11-09 13:23] VITALS: BP 98/50
[2018-11-09 17:06] VITALS: BP 99/54
[2018-11-09] MEDS ORDERED: ONDANSETRON HCL INJ 2MG/ML 2ML 2 MG/ML VIAL IV PRN (18:45)
[2018-11-09] MEDS ORDERED: ALBUTEROL/IPRATROPIUM 3 ML NEB NEB PRN (18:45)
[2018-11-09] MEDS ORDERED: FUROSEMIDE INJ 10 MG/ML 4 ML VIAL IV ONE (18:45)
--- NOTE | 2018-11-09 19:05 | NUR ---
Patient visited in room during nursing rounds. Patient alert and oriented x2-3. Bedbound (total care) and being turned Q2hr. Allevyn (foam dressing) on left hip (C/D/I). Pt is on DNR care at this time per MD (Dr. Buenrostro) order. Bilateral lower extremities especially both feet edematous (3+) and elevated with pillows. Pt hard of hearing on both ears. Daughter (Debra) at bedside visiting. Pt currently asleep and appear lethargic. Call hale within reach. Will monitor closely.
[2018-11-09 20:00] VITALS: BP 98/58
--- NOTE | 2018-11-09 21:13 | NUR ---
Pt wheezy on lung sounds per auscultation. RT gave pt breathing treatment (Duoneb). Daughters (Debra and Nella) at bedside.
--- NOTE | 2018-11-09 22:44 | NUR ---
Callled Dr. Kelley to inform pt running fever (Temp = 101 F) and has elevated heart rate 120s to 130s. aware and ordered IV Tylenol 1gm IV Q6hr prn and explained HR elevated due to fever.
[2018-11-09] MEDS ORDERED: ACETAMINOPHEN 1000 MG/100 ML IV PRN (22:45)
[2018-11-10] VITALS (7 sets, daily range): BP systolic 88–112; BP diastolic 44–51
[2018-11-10] MEDS: AZTREONAM 1 GM/NS 50 ML 50 ML IV SCH ×3 (02:30→17:15)
[2018-11-10] MEDS: CLINDAMYCIN 300MG 50 ML IV SCH ×4 (04:36→21:49)
[2018-11-10] MEDS: PANTOPRAZOLE 40 MG 10ML VIAL IV SCH (06:31)
[2018-11-10] MEDS: SUCRALFATE 1 GM/10 ML SUSP PO SCH ×2 (06:31→16:30)
[2018-11-10] MEDS: INSULIN REGULAR, HUMAN 100 UNIT/1 ML 3ML VIAL SQ SCH ×4 (07:30→21:00)
--- NOTE | 2018-11-10 15:59 | NUR ---
Tech offered to turn patient, but family wishes to have patient left in same position, for comfort reasons. Patient is suppose to go home with hospice tomorrow morning ,
--- NOTE | 2018-11-10 19:00 | NUR ---
patient received lying quietly in bed. vss. no signs of pain/discomfort noted. pm assessment complete. family remains at the bedside. family instructed to call for assistance when needed.
[2018-11-11] VITALS: BP 101/49
[2018-11-11] MEDS: AZTREONAM 1 GM/NS 50 ML 50 ML IV SCH ×2 (01:19→10:22)
[2018-11-11] MEDS: CLINDAMYCIN 300MG 50 ML IV SCH ×2 (03:27→10:22)
[2018-11-11 04:00] VITALS: BP 95/46
[2018-11-11] MEDS: INSULIN REGULAR, HUMAN 100 UNIT/1 ML 3ML VIAL SQ SCH ×2 (07:30→11:30)
[2018-11-11 07:49] VITALS: BP 96/50
[2018-11-11] MEDS: SUCRALFATE 1 GM/10 ML SUSP PO SCH (09:09)
[2018-11-11] MEDS: PANTOPRAZOLE 40 MG 10ML VIAL IV SCH (09:09)
[2018-11-11 09:13] VITALS: BP 96/50
[2018-11-11] MEDS ORDERED: ONDANSETRON HCL 4 MG ORAL DISINTEGRATING TAB PO PRN (09:30)
--- NOTE | 2018-11-11 09:33 | NUR ---
CM called and left for Zoraida with [facility] [phone]. Informed that we have discharge order for when hospice is set up. Awaiting callback.
--- NOTE | 2018-11-11 11:12 | NUR ---
IMM letter delivered and explained to pt's daughter Debra at bedside. She verbalized understanding. Signed copy placed in chart. Copy to pt's daughter. Gave daughter ALEX's business card for any questions/concerns. Pt to discharge home on hospice once services set up. Per community music therapist, she received call from [facility]. Transportation has been set up for 1330.
[2018-11-11 12:00] VITALS: BP 105/59
--- NOTE | 2018-11-11 14:00 | NUR ---
patient picked up by [facility] to transfer home on hospice. daughter at bedside at time of poultry picking machine tender and took remaining personal belongings. Addendum: 11/11/18 at 1512 by Zehra Mendez RN PIV removed with tip intact. patient diapered for incontinence. Resp even and unlabored. no c/o pain at time of d/c.
--- NOTE | 2018-11-12 07:27 | Discharge Summary ---
PRIMARY CARE PHYSICIAN: Boo Kelley MD BURRING WHEEL OPERATOR: Justin Buenrostro MD FINAL DIAGNOSES: 1. Advanced B-cell lymphoma, stage IV with metastasis. 2. Progressive medical decline associated with lymphoma and also severe protein-calorie deficit malnutrition. 3. Urinary tract infection. 4. Chronic anemia. SUMMARY: An 87-year-old female with progressive decline from her B-cell lymphoma. The patient has right facial mass on the side that has enlarging. The patient is also declining significantly due to her ongoing worsening malnutrition. Her albumin level was 1.4. Functional decline overall and not a candidate for attempting of chemotherapy or radiation. The patient progressively declined, where she is weak, unable to walk. The patient had no appetite and progressively weak from her malnutrition as well. The patient is needing comfort palliative care. Hospice consulted and the patient have been accepted. The patient is appropriate. She will be discharged home with hospice care once hospice is ready. Arrangement has been made in house. Her living situation is arranged. The patient is stable, is medically, however, decline. The patient will be going home with palliative care and hospice care. Boo Kelley MD JT/MODL /[id number]
[2018-11-12] MEDS ORDERED: PANTOPRAZOLE SOD 40 MG TABEC PO SCH (07:30)
== END 2018-11-11 13:32 | disposition hospice, home (50) | DRG 840 ==
LOC: ER 07:24 → ERHOLD 09:45 → MED/SURG2 12:13
PROVIDERS: ADMIT Internal Medicine; ATTEND Internal Medicine
DX: C85.10 Unspecified B-cell lymphoma, unspecified site (principal); E43 Unspecified severe protein-calorie malnutrition; N39.0 Urinary tract infection, site not specified; R60.9 Edema, unspecified; E11.9 Type 2 diabetes mellitus without complications; I10 Essential (primary) hypertension; Z51.5 Encounter for palliative care; D64.9 Anemia, unspecified; Z68.30 Body mass index [BMI] 30.0-30.9, adult
CPT/HCPCS: 36415; 71045; 80053; 81001; 82550; 82553; 82948; 83605; 84484; 85025; 85610; 85730; 87040; 87071; 87086; 87186; 87205; 93005; 93970; 96372; 99284; J1817; J1940; J2543; J7030; J7050